=== PATIENT | female | born 1945 | race Caucasian/White ===

== ENCOUNTER 2021-05-21 08:11 | Outpatient (REF) | payer OTHER, SELFPAY ==
--- NOTE | ~2021-05-21 | XR_ITS ---
EXAMINATION: XR ELBOW, RIGHT CLINICAL INFORMATION: Pain in the elbow COMPARISON: 08/19/2016 TECHNIQUE: Two views of the right elbow. FINDINGS: Plate and screw fixation hardware is in place at the proximal ulna. Hardware is intact. Alignment at the elbow is maintained. No fracture or dislocation. Joint space is maintained. There is a 2.1 x 1 cm ossified body along the dorsal aspect of the elbow, likely within the joint. There is soft tissue swelling overlying the olecranon. XR/XR elbow RT 2V IMPRESSION: Prominent soft tissue swelling overlies the olecranon. This could represent bursitis. Ossified body at the dorsal aspect of the elbow, likely along the posterior joint.
== END 2021-05-21 08:12 | disposition home or self-care (01) ==
LOC: HO.HOSX 08:11
PROVIDERS: Visit Provider Orthopaedic Surgery
DX: M25.521 Pain in right elbow (principal); T84.498A Other mechanical complication of other internal orthopedic devices, implants and grafts, initial encounter
CPT/HCPCS: 73070

== ENCOUNTER → 2021-05-27 09:23 | Day surgery (SDC) | payer MEDICARE, MEDICAID, SELFPAY ==
--- NOTE | 2021-05-26 08:31 | P.CONAN_ITS ---
Documented by User: Willa Painting 05/26/21 08:33 HPI - Anesthesia Eval Consult details Narrative: 75yo F for Right Removal Orthopedic Hardware olecranon s/p ORIF RT OLECRANON POST OP DOS: 07/06/16 [facility] Past Medical History Medical History HTN (hypertension) Surgical History Surgical History History of elbow surgery History of tonsillectomy Social History Social History Patient Tobacco Use Status: Former Tobacco user Tobacco use type: Cigarette Use of substances other than those prescribed or required for medical reasons: No Are you DNR?: No Advance Directives: No Advance Directives Information Provided: Yes Current occupational status: retired Meds Allergies Allergy/AdvReac Type Severity Reaction Status Date / Time No Known Allergies Allergy Verified 05/27/21 09:55 [No Known Allergies*] Home Medications Medication Instructions Recorded Confirmed Last Taken Type valsartan PO 05/21/21 Unknown History Exam Exam Date and Time: May 26, 2021 0831 Assessment and Plan Assessment Anesthesia Assessment: Chart Reviewed Documented by User: Danielle Smiley 05/27/21 10:39 [facility] Past Medical History Medical History HTN (hypertension) Surgical History Surgical History History of elbow surgery History of tonsillectomy Social History Social History Patient Tobacco Use Status: Former Tobacco user Tobacco use type: Cigarette Use of substances other than those prescribed or required for medical reasons: No Are you DNR?: No Advance Directives: No Advance Directives Information Provided: Yes Current occupational status: retired Meds Allergies Allergy/AdvReac Type Severity Reaction Status Date / Time No Known Allergies Allergy Verified 05/27/21 09:55 [No Known Allergies*] Home Medications Medication Instructions Recorded Confirmed Last Taken Type valsartan PO 05/21/21 Unknown History Exam Airway Mallampati Class: II TM Dist: >3cm Neck ROM: Limited Assessment and Plan Final Anesthetic Review NPO: Yes ASA Class: II Patient Risk: Low Procedure Risk: Low Assessment/Block/Sedation in SS: Assess/Block/Sedation-SS Anesthetic Plan Anesthetic Plan: GA Disposition: Standard PACU
[2021-05-27] VITALS (7 sets, daily range): BP systolic 102–156; BP diastolic 38–71; PULSE 84–110; RESP 16–20; TEMP 36.1–36.6; O2SAT 91–95; BMI 25.7
--- NOTE | ~2021-05-27 | FL_ITS ---
EXAMINATION: XR FLUOROSCOPY WITH IMAGES CLINICAL INFORMATION: Removal of hardware right elbow. COMPARISON: Right elbow 05/21/2021 TECHNIQUE: Fluoroscopy performed by Dr. Dontae Anne. Fluoroscopy time: Less than 1 minute. DAP: [id number] [id number] Images: 1. FINDINGS: Previously visualized lateral plate and screws have been removed. The joint space is maintained normal. FL/FL guidance in OR IMPRESSION: Fluoroscopy provided to Dr. Dontae Anne for removal of proximal ulnar plate and screws.
[2021-05-27] MEDS: Lactated Ringers 1,000 ML 100 ML IVCONT (10:28)
--- NOTE | 2021-05-27 10:53 | HO.ANESPROP2 ---
[facility] Past Medical History Medical History HTN (hypertension) Family History Family history of problems with anesthesia: No Surgical History Surgical History History of elbow surgery History of tonsillectomy History of Problems with Anesthesia: No Social History Social History Patient Tobacco Use Status: Former Tobacco user Tobacco use type: Cigarette Use of substances other than those prescribed or required for medical reasons: No Are you DNR?: No Advance Directives: No Advance Directives Information Provided: Yes Current occupational status: retired Meds Allergies Allergy/AdvReac Type Severity Reaction Status Date / Time No Known Allergies Allergy Verified 05/27/21 09:55 [No Known Allergies*] Active Medications: Current Medications Generic Name Dose Route Start Last Admin Trade Name Freq PRN Reason Stop Dose Admin Lactated Ringer's 1,000 mls @ 100 mls/hr 05/27/21 09:30 05/27/21 10:28 Lr IVCONT 100 mls/hr .Q10H LAUREN Administration Home Medications Medication Instructions Recorded Confirmed Last Taken Type valsartan PO 05/21/21 Unknown History Exam Exam Date and Time: May 27, 2021 1053 Height,Weight and Vital Signs: Height 5 ft 4 in Weight 68.039 kg Last Vital Signs Temp 97.8 F 05/27/21 10:17 Pulse 110 H 05/27/21 10:17 Resp 20 05/27/21 10:17 BP 156/71 H 05/27/21 10:17 Pulse Ox 95 05/27/21 10:17 Airway Mallampati Class: II TM Dist: >3cm Neck ROM: Full Assessment and Plan Final Anesthetic Review Family History of Problems with Anesthesia: No History of Problems with Anesthesia: No NPO: Yes ASA Class: II Final Preanesthetic Review: No Changes in Pt Med Stat, Meds/Allgs Chart Reviewed, Consent Obtained/Reviewed and Anes Risks/Benef Reviewed Patient Risk: Low Procedure Risk: Low Assessment/Block/Sedation in SS: Assess/Block/Sedation-SS Anesthetic Plan Anesthetic Plan: GA Disposition: Standard PACU
--- NOTE | 2021-05-27 11:13 | MHC.SHP ---
Pre-Procedural Eval Section A Date of Service: 05/27/21 The patient is an INPATIENT: No Changes since office visit: Yes Patient answered all questions; No Cold of Flu in the past 2 weeks, No New Medical Problems and No Changes in Medication The History & Physical has been completed within 30 days and I have reviewed it.: Yes Section B Chief Complaint: mechanical complication Allergies: Allergies Allergy/AdvReac Type Severity Reaction Status Date / Time No Known Allergies Allergy Verified 05/27/21 09:55 [No Known Allergies*] Plan I have reviewed the history and physical and performed a pertinent physical examination on my patient. No changes have occurred unless specified.
[2021-05-27] MEDS: fentaNYL citrate/PF 100 MCG/2 ML VIAL 50 MCG IVPUSH (12:50)
[2021-05-27] MEDS: Ketorolac Tromethamine 15 MG/ML VIAL IVPUSH (12:55)
--- NOTE | 2021-05-27 14:42 | PM.OP ---
Brief Operative Note Date of Service: 05/27/21 Pre-op diagnosis: retained orthopaedic hardware and open wound Post-op diagnosis: same Procedure: removal of hardware and irrigation and debridement with dealyed primary closure Surgeon: Omid Diggs MD Was an Tool Rental Technician used for this Procedure?: Yes Tool Rental Technician: Briana Barnett Estimated blood loss (mL): 25 Pathology: none sent Condition: stable Disposition: PACU
--- NOTE | 2021-06-04 14:59 | P.OP_ITS ---
Operative Note Operative Note Date of Service: 05/27/21 Narrative: Pre-op diagnosis: retained orthopaedic hardware and open wound Post-op diagnosis: same Procedure: removal of hardware and irrigation and debridement with dealyed primary closure Surgeon: Omid Diggs MD Was an Print Support Specialist used for this Procedure?: Yes Print Support Specialist: Briana Barnett Estimated blood loss (mL): 25 Pathology: none sent Condition: stable Disposition: PACU Procedure in detail: Patient was brought to the operating room placed supine on the hand table and prepped and draped in standard sterile fashion. Time-out was called after proper site proper procedure proper surgeon and IV antibiotics per weight were administered. I began by opening up the open area over the olecranon. This was exposed to the hardware and there was florid septic bursal tissue. This was removed with a combination of a run sugar and cautery and the prior incision was opened up. The hardware was then removed using screwdriver without complication. Once this was done I curetted the bone and the soft tissues of about the olecranon and irrigated with approximately 4 L of warm saline. Once I was satisfied that all the necrotic tissue was removed I performed a layered closure with amelia on the skin. Patient was placed in sterile dressing. Final radiographs were used to confirm that the hardware was removed. Patient was extubated brought to recovery room there were no known complications.
== END | disposition home or self-care (01) ==
PROVIDERS: Visit Provider Orthopaedic Surgery
PROC: (CPT 20680; principal; 2021-05-27 11:00)
DX: T84.498A Other mechanical complication of other internal orthopedic devices, implants and grafts, initial encounter (principal); S51.001A Unspecified open wound of right elbow, initial encounter; M71.121 Other infective bursitis, right elbow; X58.XXXA Exposure to other specified factors, initial encounter; Y79.8 Miscellaneous orthopedic devices associated with adverse incidents, not elsewhere classified; Y99.8 Other external cause status; I10 Essential (primary) hypertension; Z79.899 Other long term (current) drug therapy; Z87.891 Personal history of nicotine dependence
CPT/HCPCS: 20680; J0131; J0690; J1100; J1885; J2405; J3010

== ENCOUNTER → 2021-06-08 12:33 | Outpatient (BNVA) | payer MEDICARE, MEDICAID, SELFPAY | PROVIDERS: Visit Provider Physician Assistant | DX: Z47.89 Encounter for other orthopedic aftercare (principal); Z98.890 Other specified postprocedural states | CPT/HCPCS: 99212 ==

== ENCOUNTER → 2021-06-12 10:26 | Outpatient (BNVA) | payer MEDICARE, MEDICAID, SELFPAY | PROVIDERS: Visit Provider Physician Assistant | DX: Z98.890 Other specified postprocedural states (principal) | CPT/HCPCS: 99212 ==

== ENCOUNTER → 2021-06-29 09:06 | Outpatient (BNVA) | payer MEDICARE, MEDICAID, SELFPAY | PROVIDERS: Visit Provider Physician Assistant | DX: Z98.890 Other specified postprocedural states (principal) | CPT/HCPCS: 99212 ==

== ENCOUNTER 2022-05-09 10:08 | Inpatient (IN) | payer MEDICARE, MEDICAID, SELFPAY ==
--- NOTE | ~2022-05-09 | XR_ITS ---
EXAMINATION: XR HIP, LEFT CLINICAL INFORMATION: Trauma COMPARISON: None TECHNIQUE: Pelvis, AP view Left hip, 2 views FINDINGS: The osseous pelvic ring is intact. Alignment is normal the pubic symphysis and sacroiliac joints. Mild degenerative subarticular sclerosis at sacroiliac joints. No radiographic evidence of sacral fracture. The joint space of each hip is maintained. There is an acute, comminuted, moderately displaced intertrochanteric fracture of the left femur with posterosuperolateral migration of the shaft fragment and femoral varus deformity. The iliac and femoral arteries are calcified. XR/XR hip LT w PEL1V IMPRESSION: Acute, comminuted, moderately displaced intertrochanteric fracture of the proximal left femur.
--- NOTE | ~2022-05-09 | FL_ITS ---
EXAMINATION: XR FLUOROSCOPY WITH IMAGES CLINICAL INFORMATION: Left hip fracture. COMPARISON: Previous x-ray 05/09/2022. TECHNIQUE: Fluoroscopy performed by Dr. Omid Diggs. Fluoroscopy time: 1.2 minutes Dose: 36 mGy Images: 6 FINDINGS: Fluoroscopic guidance was provided for ORIF of left femoral intertrochanteric fracture. Images demonstrate an intramedullary eligio, compression/lag screw and single distal cortical screw with improved anatomic alignment. FL/FL guidance in OR IMPRESSION: Fluoroscopic guidance for ORIF of left femoral intertrochanteric fracture.
--- NOTE | ~2022-05-09 | XR_ITS ---
EXAMINATION: XR CHEST CLINICAL INFORMATION: Cough. COMPARISON: None TECHNIQUE: Frontal view of the chest was obtained. FINDINGS: Lungs are well expanded and clear. No pleural effusion. Cardiac silhouette is normal in size. The hilar contours are normal. The structure that causes right-sided deviation of the trachea is likely a nodular thyroid gland/goiter. Multilevel osteophyte formation of the spine. XR/XR chest 1V IMPRESSION: * No acute pulmonary disease. * There is likely a large left thyroid nodule/thyroid goiter. Note that there are no comparison imaging examinations of the thyroid gland. If deemed clinically appropriate, a routine (nonemergent) thyroid ultrasound follow-up examination may be performed.
[2022-05-09 10:17] VITALS: BP 177/57; BP 181/56; PULSE 108; PULSE 110; RESP 18; TEMP 36.7; O2SAT 95; O2SAT 96; BMI 25.7
[2022-05-09 10:24] LABS: Glucose, Whole Blood 452 mg/dL (60-115)
--- NOTE | 2022-05-09 10:26 | ECG_ITS ---
Test Reason : fall Blood Pressure : / mmHG Vent. Rate : 102 BPM Atrial Rate : 102 BPM P-R Int : 164 ms QRS Dur : 088 ms QT Int : 346 ms P-R-T Axes : 032 082 043 degrees QTc Int : 450 ms Sinus tachycardia with Premature supraventricular complexes Otherwise normal ECG No previous ECGs available Referred By: Jair Grey Electronically Signed By:Brian Saldivar
--- NOTE | 2022-05-09 10:27 | ED.FALL ---
HPI - Fall General Chief Complaint: Fall Stated Complaint: Mechanical fall X1day Time Seen by Provider: 05/09/22 10:23 Source: patient and EMS Mode of arrival: EMS Limitations: no limitations History of Present Illness HPI Narrative: This is 76 years old female who fell last night while opening the refrigerator called the ambulance with a chief complaint of left hip pain inability to ambulate. She denies any chest wall pain, abdominal pain, any systemic symptoms. She states she has no past medical history complaint: fall Onset (ago): day(s) (1) Fall from: standing Fall witnessed: no Place fall occurred: home Loss of consciousness: none Prolonged down time: no Symptoms prior to fall: none Context: tripped/slipped Related Data Home Medications Medication Instructions Recorded Confirmed No Known Home Meds 05/09/22 05/09/22 Allergies Allergy/AdvReac Type Severity Reaction Status Date / Time No Known Allergies Allergy Verified 06/29/21 09:10 [No Known Allergies*] Review of Systems Constitutional: Constitutional: Reports no additional constitutional complaints Eyes: Eyes: Reports no additional eye complaints ENT: Reports system reviewed and no additional complaints, except as documented Cardiovascular: Cardiovascular: Reports no additional cardiovascular complaints Genitourinary: Genitourinary: Reports no additional female genitourinary complaints Musculoskeletal: Musculoskeletal: Reports other (left hip pain ) [facility] Past Medical History Medical History HTN (hypertension) Surgical History History of elbow surgery History of tonsillectomy Family History Family History (Updated 05/09/22 @ 12:42 by Tai Craven MD) Other No family history of diabetes mellitus Social History Social History (Updated 05/09/22 @ 12:42 by Tai Craven MD) Alcohol intake: current Alcohol intake frequency: 0-2 drinks per day Alcohol type: hard liquor Patient Tobacco Use Status: Former Tobacco user Tobacco use type: Cigarette Use of substances other than those prescribed or required for medical reasons: No Advance Directives: No Advance Directives Information Provided: No Current occupational status: retired Physical Exam Vital Signs: Vital Signs: Last Vital Signs Temp 98.2 F 05/09/22 10:42 Pulse 102 H 05/09/22 10:42 Resp 19 05/09/22 10:42 BP 161/62 H 05/09/22 10:42 Pulse Ox 96 05/09/22 10:42 O2 Del Method 05/09/22 10:42 BMI result Body Mass Index 25.7 Const: General: cooperative Nutritional Appearance: average body habitus Orientation/consciousness: patient oriented x3 Limitations: no limitations HEENT: Head: Yes normal to inspection General nose exam: Normal external nose present Face and sinus: Yes normal facial exam Throat: Yes posterior oropharynx normal Neck: Neck: Yes normal visual inspection, Yes full ROM and Yes no lymphadenopathy Chest: Chest palpation & inspection: normal inspection of the chest Resp: Effort & Inspection: normal respiratory effort Auscultation: clear to auscultation bilaterally Cardio: Jugular venous distension: no JVD Rate: regular rate Rhythm: regular rhythm GI: Inspection: Yes normal to inspection Palpation (GI): Soft to palpation, not firm, nontender and no guarding Skin: General skin exam: no rashes or lesions noted Neuro: General: patient oriented x3 Extrem: Other: There is a extra rotation of the left hip, tenderness in the left hip, shortening on the left lower extremity Course Course Course Narrative: I spoke with cl Damon pt to be admitted to the medical service Reevaluation(s) Reevaluation #1: spoke with hospitalist Dr Herber Corrales Lab Data Result diagrams: 05/09/22 10:35 05/09/22 10:35 Labs: Lab Results 05/09/22 05/09/22 05/09/22 Range/Units 10:20 10:35 10:35 WBC 12.4 H (4.8-10.8) X10*3/uL RBC 4.14 L (4.20-5.50) X10*6/uL Hgb 12.2 (12.0-16.0) g/dl Hct 35.2 L (37.0-47.0) % MCV 85.0 (80.0-98.0) fL MCH 29.5 (27.0-33.0) pg MCHC 34.7 (31.0-35.0) g/dl RDW 12.3 (11.0-16.0) % Plt Count 295 (160-400) X10*3/uL MPV 9.6 (9.4-12.3) fL Immature Gran % (Auto) 0.8 H (0.0-0.4) % Neut % (Auto) 83.6 H (45-73) % Lymph % (Auto) 7.3 L (20-40) % Elliott % (Auto) 8.0 (2-11) % Eos % (Auto) 0.1 (0-4) % Baso % (Auto) 0.2 (0-2) % Lymph # (Auto) 0.9 L (1.2-4.9) X10*3/uL Elliott # (Auto) 1.0 (0.1-1.2) X10*3/uL Eos # (Auto) 0.0 (0.0-0.4) X10*3/uL Baso # (Auto) 0.0 (0.0-0.2) X10*3/uL Abs Immat Gran (auto) 0.10 H (0.00-0.03) X10*3/uL Absolute Neuts (auto) 10.4 H (2.0-8.3) x10*3/uL Absolute Nucleated RBC 0.000 (0.0-0.012) X10*3/uL Nucleated RBC % (auto) 0.0 (0.0-0.2) /100WBC PT (10.0-13.1) SEC INR (0.9-1.1) Sodium 133 L (135-145) mmol/L Potassium 4.8 (3.3-5.1) mmol/L Chloride 99 (96-108) mmol/L Carbon Dioxide 24 (22-29) mmol/L Anion Gap 15 (12-20) BUN 20 H (9-16) mg/dL Creatinine 0.97 (0.5-1.4) mg/dL Estim Creat Clear Calc 47.4 Estimated GFR 56 POC Glucose 452 H* (60-115) mg/dL Random Glucose 535 H* (60-115) mg/dL Estimat Average Glucose mg/dL Hemoglobin A1c % % Calcium 9.0 (8.4-10.2) mg/dL Total Bilirubin 0.9 (0.0-1.0) mg/dL AST 15 (5-31) U/L ALT 15 (0-31) U/L Alkaline Phosphatase 97 (39-117) U/L Total Protein 6.4 L (6.5-8.0) g/dL Albumin 4.1 (3.5-5.0) g/dL Urine Color Urine Appearance Urine pH (5.0-8.0) Ur Specific [place] (1.005-1.025) Urine Protein (NEG-TRACE) MG/DL Urine Glucose (UA) (NEG) MG/DL Urine Ketones (NEG) MG/DL Urine Blood (NEG) Urine Nitrite (NEG) Ur Leukocyte Esterase (NEG) Urine RBC (0) /HPF Urine WBC (0-4) /HPF Ur Squamous Epith Cells /LPF Urine Bacteria /LPF Urine Yeast /HPF 05/09/22 05/09/22 05/09/22 Range/Units 10:35 10:35 12:38 WBC (4.8-10.8) X10*3/uL RBC (4.20-5.50) X10*6/uL Hgb (12.0-16.0) g/dl Hct (37.0-47.0) % MCV (80.0-98.0) fL MCH (27.0-33.0) pg MCHC (31.0-35.0) g/dl RDW (11.0-16.0) % Plt Count (160-400) X10*3/uL MPV (9.4-12.3) fL Immature Gran % (Auto) (0.0-0.4) % Neut % (Auto) (45-73) % Lymph % (Auto) (20-40) % Elliott % (Auto) (2-11) % Eos % (Auto) (0-4) % Baso % (Auto) (0-2) % Lymph # (Auto) (1.2-4.9) X10*3/uL Elliott # (Auto) (0.1-1.2) X10*3/uL Eos # (Auto) (0.0-0.4) X10*3/uL Baso # (Auto) (0.0-0.2) X10*3/uL Abs Immat Gran (auto) (0.00-0.03) X10*3/uL Absolute Neuts (auto) (2.0-8.3) x10*3/uL Absolute Nucleated RBC (0.0-0.012) X10*3/uL Nucleated RBC % (auto) (0.0-0.2) /100WBC PT 10.6 (10.0-13.1) SEC INR 0.9 (0.9-1.1) Sodium (135-145) mmol/L Potassium (3.3-5.1) mmol/L Chloride (96-108) mmol/L Carbon Dioxide (22-29) mmol/L Anion Gap (12-20) BUN (9-16) mg/dL Creatinine (0.5-1.4) mg/dL Estim Creat Clear Calc Estimated GFR POC Glucose (60-115) mg/dL Random Glucose (60-115) mg/dL Estimat Average Glucose 283 mg/dL Hemoglobin A1c % 11.5 % Calcium (8.4-10.2) mg/dL Total Bilirubin (0.0-1.0) mg/dL AST (5-31) U/L ALT (0-31) U/L Alkaline Phosphatase (39-117) U/L Total Protein (6.5-8.0) g/dL Albumin (3.5-5.0) g/dL Urine Color YELLOW Urine Appearance HAZY Urine pH 5.5 (5.0-8.0) Ur Specific [place] 1.010 (1.005-1.025) Urine Protein NEG (NEG-TRACE) MG/DL Urine Glucose (UA) >=1000 H (NEG) MG/DL Urine Ketones 5 (NEG) MG/DL Urine Blood NEG (NEG) Urine Nitrite NEG (NEG) Ur Leukocyte Esterase NEG (NEG) Urine RBC 0 (0) /HPF Urine WBC 0-2 (0-4) /HPF Ur Squamous Epith Cells TRACE /LPF Urine Bacteria NONE /LPF Urine Yeast 3+ /HPF Imaging Data left hip: Radiologist's impression: TECHNIQUE: Pelvis, AP view Left hip, 2 views FINDINGS: The osseous pelvic ring is intact. Alignment is normal the pubic symphysis and sacroiliac joints. Mild degenerative subarticular sclerosis at sacroiliac joints. No radiographic evidence of sacral fracture. The joint space of each hip is maintained. There is an acute, comminuted, moderately displaced intertrochanteric fracture of the left femur with posterosuperolateral migration of the shaft fragment and femoral varus deformity. The iliac and femoral arteries are calcified. XR/XR hip LT w PEL1V IMPRESSION: Acute, comminuted, moderately displaced intertrochanteric fracture of the proximal left femur. ? Dictated By: Elkin Valera MD Signed By: <Electronically signed by Elkin Valera MD in OV> 05/09/22 1255 DD/ 1150 TD/TT:? Cylinder Devalver: PD ECG Data Attestation: I personally reviewed and interpreted this ECG as follows: ECG interpretation date: 05/09/22 Pacemaker model: Normal sinus rhythm a rate of 102 no ischemic changes Discharge Plan Discharge Clinical Impression: Closed hip fracture, Diabetes mellitus, new onset Patient Disposition: Admitted As Inpatient
[2022-05-09 10:39] LABS: MANUAL DIFF FLAG NO
[2022-05-09 10:42] VITALS: BP 161/62; PULSE 102; RESP 19; TEMP 36.8; O2SAT 96
[2022-05-09 10:47] LABS: INTERNATIONAL NORM RATIO 0.9 (0.9-1.1); Prothrombin Time 10.6 SEC (10.0-13.1)
[2022-05-09 10:50] LABS: Basophils Percent Auto 0.2 % (0-2); Eosinophils Percent Auto 0.1 % (0-4); Hematocrit 35.2 % (37.0-47.0); Hemoglobin 12.2 g/dl (12.0-16.0); Imm Gran Pct Auto 0.8 % (0.0-0.4); Lymphocytes Absolute Auto 0.9 X10*3/uL (1.2-4.9); Lymphocytes Percent Auto 7.3 % (20-40); Mean Corpuscular HGB Conc 34.7 g/dl (31.0-35.0); Mean Corpuscular Hemoglobin 29.5 pg (27.0-33.0); Mean Platelet Volume 9.6 fL (9.4-12.3); Neutrophils Absolute Auto 10.4 x10*3/uL (2.0-8.3); Neutrophils Percent Auto 83.6 % (45-73); Platelet Count 295 X10*3/uL (160-400); Red Blood Count 4.14 X10*6/uL (4.20-5.50); Red Cell Distribution Width 12.3 % (11.0-16.0); White Blood Count 12.4 X10*3/uL (4.8-10.8)
--- NOTE | 2022-05-09 11:01 | PHA.MEDREC ---
Pharmacy Consult ? Medication Reconciliation Pharmacy has completed the medication reconciliation.
[2022-05-09 11:02] LABS: Alanine Aminotransferase 15 U/L (0-31); Albumin Level 4.1 g/dL (3.5-5.0); Alkaline Phosphatase 97 U/L (39-117); Anion Gap 15 (12-20); Aspartate Amino Transferase 15 U/L (5-31); Bilirubin Total 0.9 mg/dL (0.0-1.0); Blood Urea Nitrogen 20 mg/dL (9-16); Carbon Dioxide 24 mmol/L (22-29); Chloride 99 mmol/L (96-108); Creatinine Clr Calc Pharmacy 47.4; Estimated Glomerular Filt Rate 56; Glucose Random 535 mg/dL (60-115); Potassium 4.8 mmol/L (3.3-5.1); Sodium 133 mmol/L (135-145); Total Protein 6.4 g/dL (6.5-8.0)
[2022-05-09] MEDS: ondansetron HCL 4 MG/2 ML VIAL IVPUSH (11:08)
[2022-05-09] MEDS: Morphine Sulfate 4 MG/ML CARTRIDGE IVPUSH (11:08)
[2022-05-09] MEDS: 0.9 % Sodium Chloride 1,000 ML 999 ML IVCONT ×2 (11:08)
[2022-05-09] MEDS: Insulin Lispro 100 UNIT/ML 3 ML VIAL SUBCUT ×3 (11:09→21:34)
[2022-05-09 12:27] LABS: Estimated Average Glucose 283 mg/dL; Hemoglobin A1c % 11.5 %
--- NOTE | 2022-05-09 12:42 | P.HPHOSP_ITS ---
History of Present Illness Date of Service: 05/09/22 Chief Complaint: fall 76F presented with mechanical fall. patient had been feeling well on day of presentation. She was reaching for something in her refrigerator and slipped and fell on her left side. She had significant pain was unable to get up. She called EMS. In ED found to have left hip fracture. Also incidentally found to have hyperglycemia, A1c of 11.5, consistent with new onset diabetes, patient was unaware of diagnosis. She denied any previous past medical history and was not on any medications at home. Review of Systems Review of Systems: Constitutional: Denies fever, denies Chills Eyes: denies blurry vision ENT: denies sore throat CVS: denies chest pain Respiratory: Denies dyspnea GI: no abdominal pain : denies dysuria MSK: denies neck pain Skin: denies rash Neuro: denies specific motor weakness Psych: denies suicidal ideation Endocrine: denies heat/cold intolerance Hematologic: denies easy bleeding Allergy: denies hives [facility] Medical History HTN (hypertension) Family History (Updated 05/09/22 @ 12:42 by Tai Craven MD) Other No family history of diabetes mellitus Surgical History History of elbow surgery History of tonsillectomy Social History (Updated 05/09/22 @ 12:42 by Tai Craven MD) Alcohol intake: current Alcohol intake frequency: 0-2 drinks per day Alcohol type: hard liquor Patient Tobacco Use Status: Former Tobacco user Tobacco use type: Cigarette Use of substances other than those prescribed or required for medical reasons: No Advance Directives: No Advance Directives Information Provided: No Current occupational status: retired Meds Allergies Allergy/AdvReac Type Severity Reaction Status Date / Time No Known Allergies Allergy Verified 06/29/21 09:10 [No Known Allergies*] Active Medications: Current Medications Acetaminophen (Acetaminophen 325 Mg Tablet) 650 mg PO Q6H PRN PRN Reason: Pain, Mild (Pain Scale 1-3) Dextrose (Dextrose 50 % 25 Gm/50 Ml Syringe) 25 gm IVPUSH Q15M PRN; Protocol PRN Reason: per Hypoglycemia Standing Ord. Glucose (Glucose Gel 15 Gm Gel..Gram.) 15 gm PO Q15M PRN; Protocol PRN Reason: per Hypoglycemia Standing Ord. Sodium Chloride (Ns) 1,000 mls @ 100 mls/hr IVCONT .Q10H [facility] Insulin Human Lispro (Insulin Lispro 100 Unit/Ml 3 Ml Vial) 0 unit SUBCUT QIDACHS [facility]; Protocol Pharmacy Consult (Consult Rx Perform Med Rec) 1 each MISCELLANE ONCE PRN PRN Reason: Consult order Sodium Chloride (0.9 % Sodium Chloride Flush 3 Ml Syringe) 3 ml IVFLUSH QSHIFT [facility] Home Medications Medication Instructions Recorded Confirmed Last Taken Type No Known Home Meds 05/09/22 05/09/22 Unknown History Physical Exam Vital Signs and Narrative: Vital Signs: Last Vital Signs Temp 98.2 F 05/09/22 10:42 Pulse 102 H 05/09/22 10:42 Resp 19 05/09/22 10:42 BP 161/62 H 05/09/22 10:42 Pulse Ox 96 05/09/22 10:42 O2 Del Method 05/09/22 10:42 BMI result Body Mass Index 25.7 General: no acute distress HEENT: atraumatic Neck: normal to visual inspection CVS: S1, S2, RRR Resp: CTA bilateral Chest: non tender GI: soft, non tender, non distended : no CVA tenderness Skin: no rashes Extremities: no edema Neuro: Oriented X3, grossly intact Psych: cooperative Results Labs CBC and Chem 7: 05/09/22 10:35 05/09/22 10:35 Labs: Laboratory Results - last 24 hr 05/09/22 05/09/22 05/09/22 10:20 10:35 10:35 MCV 85.0 MCH 29.5 MCHC 34.7 RDW 12.3 Plt Count 295 MPV 9.6 Immature Gran % (Auto) 0.8 H Neut % (Auto) 83.6 H Lymph % (Auto) 7.3 L Sanders % (Auto) 8.0 Eos % (Auto) 0.1 Baso % (Auto) 0.2 Lymph # (Auto) 0.9 L Sanders # (Auto) 1.0 Eos # (Auto) 0.0 Baso # (Auto) 0.0 Abs Immat Gran (auto) 0.10 H Absolute Neuts (auto) 10.4 H Absolute Nucleated RBC 0.000 Nucleated RBC % (auto) 0.0 PT INR Anion Gap 15 Estim Creat Clear Calc 47.4 Estimated GFR 56 POC Glucose 452 H* Random Glucose 535 H* Estimat Average Glucose Hemoglobin A1c % Calcium 9.0 Total Bilirubin 0.9 AST 15 ALT 15 Alkaline Phosphatase 97 Total Protein 6.4 L Albumin 4.1 05/09/22 05/09/22 10:35 10:35 MCV MCH MCHC RDW Plt Count MPV Immature Gran % (Auto) Neut % (Auto) Lymph % (Auto) Sanders % (Auto) Eos % (Auto) Baso % (Auto) Lymph # (Auto) Sanders # (Auto) Eos # (Auto) Baso # (Auto) Abs Immat Gran (auto) Absolute Neuts (auto) Absolute Nucleated RBC Nucleated RBC % (auto) PT 10.6 INR 0.9 Anion Gap Estim Creat Clear Calc Estimated GFR POC Glucose Random Glucose Estimat Average Glucose 283 Hemoglobin A1c % 11.5 Calcium Total Bilirubin AST ALT Alkaline Phosphatase Total Protein Albumin Assessment and Plan (1) Closed hip fracture: Status: Acute Plan 76F presented with mechanical fall, found to have left hip fracture and new onset DM Mechanical fall complicated by left hip fracture NPO after midnight for OR tomorrow patient is moderate risk for moderate risk procedure, Benefits outweigh risk new onset diabetes with hyperglycemia and pseudohyponatremia insulin, IV hydration, monitor BMP, patient Education, at discharge can likely use orals, will use insulin while inpatient. full code patient with hip fracture requiring surgery, therefore, expected to require at least 2 midnights in the hospital Quality Stroke Does the patient have a stroke diagnosis?: No VTE Prior VTE?: No VTE Risk Level:: Medical - moderate - high VTE Device Contraindication: N/A - Device Ordered VTE Drug Contraindication: Treatment Not Tolerated
[2022-05-09 12:53] LABS: Appearance Urine HAZY; Color Urine YELLOW; Glucose Urine UA >=1000 MG/DL (NEG); Leukocyte Esterase Urine NEG (NEG); Nitrite Urine NEG (NEG); PH 5.5 (5.0-8.0); Urine Blood NEG (NEG); Urine Ketones 5 MG/DL (NEG); Urine Protein NEG (NEG-TRACE)
[2022-05-09 12:59] LABS: RBC Urine 0 /HPF (0); Squamous Epithelial Cell Urine TRACE /LPF; WBC Urine 0-2 /HPF (0-4)
[2022-05-09 13:02] LABS: COVID-19 Test Negative (Negative)
[2022-05-09 13:31] VITALS: BP 148/58; PULSE 93; RESP 16; O2SAT 98
[2022-05-09] MEDS: 0.9 % Sodium Chloride 1,000 ML 100 ML IVCONT (13:35)
[2022-05-09 13:53] LABS: Glucose, Whole Blood 272 mg/dL (60-115)
[2022-05-09] MEDS: Morphine Sulfate 2 MG/ML CARTRIDGE IVPUSH ×2 (15:21→21:35)
--- NOTE | 2022-05-09 18:02 | P.CONOP_ITS ---
History of Present Illness HPI Consult date: 05/09/22 Chief complaint: Mechanical fall X1day Narrative: 76 yo female admited to the medical service s/p fall at home. She states she was getting some soda from the fridge when she suddenly fell . She denies sob, dizziness, palpitations prior to falling. She did not hit her head. She states she was able to crawl to call her son who lives with her. She applied ice and heat but noticed her leg was rotated and she was unable to get up and walker. EMS was contacted and transported her to the ED. Xrays and exam in the ED showed intertrochanteric fracture of the left femur. Orthopedics was consulted for further recommendations. She is a new onset diabetic with an A1C of 11.5 She lives at home with her son. Review of Systems Review of Systems: per [facility] Past Medical History Medical History HTN (hypertension) Family History Family History (Updated 05/09/22 @ 12:42 by Tai Craven MD) Other No family history of diabetes mellitus Surgical History Surgical History History of elbow surgery History of tonsillectomy Social History Social History (Updated 05/09/22 @ 12:42 by Tai Craven MD) Alcohol intake: current Alcohol intake frequency: 0-2 drinks per day Alcohol type: hard liquor Patient Tobacco Use Status: Former Tobacco user Tobacco use type: Cigarette Use of substances other than those prescribed or required for medical reasons: No Advance Directives: No Advance Directives Information Provided: No Current occupational status: retired Meds Allergies Allergy/AdvReac Type Severity Reaction Status Date / Time No Known Allergies Allergy Verified 06/29/21 09:10 [No Known Allergies*] Active Medications: Current Medications Acetaminophen (Acetaminophen 325 Mg Tablet) 650 mg PO Q6H PRN PRN Reason: Pain, Mild (Pain Scale 1-3) Dextrose (Dextrose 50 % 25 Gm/50 Ml Syringe) 25 gm IVPUSH Q15M PRN; Protocol PRN Reason: per Hypoglycemia Standing Ord. Glucose (Glucose Gel 15 Gm Gel..Gram.) 15 gm PO Q15M PRN; Protocol PRN Reason: per Hypoglycemia Standing Ord. Sodium Chloride (Ns) 1,000 mls @ 100 mls/hr IVCONT .Q10H [facility] Last Admin: 05/09/22 13:35 Dose: 100 mls/hr Insulin Human Lispro (Insulin Lispro 100 Unit/Ml 3 Ml Vial) 0 unit SUBCUT QIDACHS [facility]; Protocol Morphine Sulfate (Morphine Sulfate 2 Mg/Ml Cartridge) 2 mg IVPUSH Q4H PRN; Protocol PRN Reason: moderate pain Last Admin: 05/09/22 15:21 Dose: 2 mg Pharmacy Consult (Consult Rx Perform Med Rec) 1 each MISCELLANE ONCE PRN PRN Reason: Consult order Sodium Chloride (0.9 % Sodium Chloride Flush 3 Ml Syringe) 3 ml IVFLUSH QSHIFT [facility] Last Admin: 05/09/22 16:14 Dose: Not Given Home Medications Medication Instructions Recorded Confirmed Last Taken Type No Known Home Meds 05/09/22 05/09/22 Unknown History Physical Exam Vital Signs: Vital Signs: Last Vital Signs Temp 98.2 F 05/09/22 10:42 Pulse 93 05/09/22 13:31 Resp 16 05/09/22 13:31 BP 148/58 H 05/09/22 13:31 Pulse Ox 98 05/09/22 13:31 O2 Del Method 05/09/22 13:31 BMI result Body Mass Index 25.7 Const: General: cooperative, healthy appearing, comfortable, no acute distress, well developed and alert Orientation/consciousness: patient oriented x3 HEENT: Head: Yes normal to inspection, Yes normocephalic and Yes atraumatic Eyes: General: appearance normal, both eyes and all related structures Neck: Neck: Yes normal visual inspection and Yes no lymphadenopathy Resp: Effort & Inspection: normal respiratory effort and able to speak in complete sentences Cardio: Rate: regular rate Peripheral pulses: Peripheral pulses 2+ throughout GI: Inspection: Yes normal to inspection Palpation (GI): Soft to palpation Skin: General skin exam: no rashes or lesions noted Neuro: General: patient oriented x3 Extrem: Other: Left hip skin intact, no open wounds. Pain with log roll, unable to SLR. NVI. Psych: Appearance: grossly normal Mental Status: mental status grossly normal Results Labs Result Diagrams: 05/10/22 06:36 05/10/22 06:36 Labs: Abnormal lab results 05/09/22 05/09/22 05/09/22 Range/Units 10:20 10:35 10:35 WBC 12.4 H (4.8-10.8) X10*3/uL RBC 4.14 L (4.20-5.50) X10*6/uL Hct 35.2 L (37.0-47.0) % Immature Gran % (Auto) 0.8 H (0.0-0.4) % Neut % (Auto) 83.6 H (45-73) % Lymph % (Auto) 7.3 L (20-40) % Lymph # (Auto) 0.9 L (1.2-4.9) X10*3/uL Abs Immat Gran (auto) 0.10 H (0.00-0.03) X10*3/uL Absolute Neuts (auto) 10.4 H (2.0-8.3) x10*3/uL Sodium 133 L (135-145) mmol/L BUN 20 H (9-16) mg/dL POC Glucose 452 H* (60-115) mg/dL Random Glucose 535 H* (60-115) mg/dL Total Protein 6.4 L (6.5-8.0) g/dL Urine Glucose (UA) (NEG) MG/DL 05/09/22 05/09/22 Range/Units 12:38 13:47 WBC (4.8-10.8) X10*3/uL RBC (4.20-5.50) X10*6/uL Hct (37.0-47.0) % Immature Gran % (Auto) (0.0-0.4) % Neut % (Auto) (45-73) % Lymph % (Auto) (20-40) % Lymph # (Auto) (1.2-4.9) X10*3/uL Abs Immat Gran (auto) (0.00-0.03) X10*3/uL Absolute Neuts (auto) (2.0-8.3) x10*3/uL Sodium (135-145) mmol/L BUN (9-16) mg/dL POC Glucose 272 H (60-115) mg/dL Random Glucose (60-115) mg/dL Total Protein (6.5-8.0) g/dL Urine Glucose (UA) >=1000 H (NEG) MG/DL H & H 05/09/22 Range/Units 10:35 Hgb 12.2 (12.0-16.0) g/dl Hct 35.2 L (37.0-47.0) % Coagulation 05/09/22 Range/Units 10:35 INR 0.9 (0.9-1.1) All other labs normal. Assessment and Plan (1) Closed hip fracture: Status: Acute Plan I explained the extent of the injury to the patient and options available which include surgical intervention. I explained the procedure in detail along with the length of recovery and rehab course. I explained the risk, benefits and alternatives. Risk including, but not limited to infection, blood clots, bleeding, non union or malunion and nerve/tissue damage to surrounding areas. I answered all their questions and with their understanding they have consented to move forward with Operative Fixation of the left hip . The patient will be T&S, med clearance obtained and NPO after midnight. Procedures Date of Service Date of Service: 05/10/22
[2022-05-09 18:21] LABS: Glucose, Whole Blood 272 mg/dL (60-115)
[2022-05-09 21:30] LABS: Glucose, Whole Blood 262 mg/dL (60-115)
[2022-05-10] VITALS (15 sets, daily range): BP systolic 143–188; BP diastolic 47–81; PULSE 90–111; RESP 16–23; TEMP 36.1–37.4; O2SAT 93–96
[2022-05-10] MEDS: 0.9 % Sodium Chloride 1,000 ML 100 ML IVCONT ×3 (00:06→19:42)
--- NOTE | 2022-05-10 04:02 | PC.NURSE ---
pt is sleeping at this time no sign of distress.
[2022-05-10 07:06] LABS: Hematocrit 30.6 % (37.0-47.0); Hemoglobin 10.2 g/dl (12.0-16.0); Mean Corpuscular HGB Conc 33.3 g/dl (31.0-35.0); Mean Corpuscular Hemoglobin 29.3 pg (27.0-33.0); Mean Corpuscular Volume 87.9 fL (80.0-98.0); Mean Platelet Volume 9.6 fL (9.4-12.3); Platelet Count 219 X10*3/uL (160-400); Red Blood Count 3.48 X10*6/uL (4.20-5.50); Red Cell Distribution Width 12.6 % (11.0-16.0); White Blood Count 8.1 X10*3/uL (4.8-10.8)
[2022-05-10 07:29] LABS: Anion Gap 12 (12-20); Blood Urea Nitrogen 12 mg/dL (9-16); Calcium 8.2 mg/dL (8.4-10.2); Carbon Dioxide 22 mmol/L (22-29); Chloride 105 mmol/L (96-108); Creatinine Clr Calc Pharmacy 69.8; Estimated Glomerular Filt Rate > 60; Glucose Fasting 264 mg/dL (60-99); Magnesium 1.6 mg/dL (1.6-2.6); Sodium 135 mmol/L (135-145)
[2022-05-10 07:52] LABS: Glucose, Whole Blood 235 mg/dL (60-115)
--- NOTE | 2022-05-10 09:28 | PC.NURSE ---
REPORT GIVEN TO MELISSA ABEL. PT WILL TRANSFER TO ROOM 352.
[2022-05-10] MEDS: Morphine Sulfate 2 MG/ML CARTRIDGE IVPUSH ×2 (09:56→14:15)
[2022-05-10 11:58] LABS: Glucose, Whole Blood 219 mg/dL (60-115)
--- NOTE | 2022-05-10 15:23 | MHC.CM.NN ---
met with pt who is unsure of dc plan she is unvaccinated and does not want to do a hcp because she says she is not goping to she would rather go home with vna or outpt physicaL therapy altho at the same time sheldon mentioned going to [facility] cm will follow dc plan tbd by pt surjit
[2022-05-10 15:47] LABS: Glucose, Whole Blood 216 mg/dL (60-115)
--- NOTE | 2022-05-10 15:49 | P.PNIM_ITS ---
Subjective Subjective Date of Service: 05/10/22 Interval History: seen and examined hip pain controlled d/w her re: diagnosis of DM -- states she eats dontus daily but understands she will have to stop Review of Systems negative except HPI Physical Exam Vital Signs: Vital Signs: Last Vital Signs Temp 97.8 F 05/10/22 15:04 Pulse 101 H 05/10/22 15:04 Resp 18 05/10/22 15:04 BP 164/81 H 05/10/22 15:04 Pulse Ox 93 05/10/22 15:04 O2 Del Method 05/10/22 15:04 BMI result Body Mass Index 25.7 Const: Other: General - no acute distress, appears comfortable Cardiovascular - regular rate and rhythm, S1-S2 Lungs - normal respiratory effort, clear to auscultation bilaterally, no wheezing Abdomen - soft, nontender, no rebound or guarding Extremities - no edema Neuro - awake and alert, no focal deficits Objective Data Active Medications Acetaminophen (Acetaminophen 325 Mg Tablet) 650 mg PO Q6H PRN PRN Reason: Pain, Mild (Pain Scale 1-3) Dextrose (Dextrose 50 % 25 Gm/50 Ml Syringe) 25 gm IVPUSH Q15M PRN; Protocol PRN Reason: per Hypoglycemia Standing Ord. Glucose (Glucose Gel 15 Gm Gel..Gram.) 15 gm PO Q15M PRN; Protocol PRN Reason: per Hypoglycemia Standing Ord. Sodium Chloride (Ns) 1,000 mls @ 100 mls/hr IVCONT .Q10H [facility] Last Admin: 05/10/22 09:43 Dose: 100 mls/hr Documented By: MAX Insulin Human Lispro (Insulin Lispro 100 Unit/Ml 3 Ml Vial) 0 unit SUBCUT QIDACHS [facility]; Protocol Last Admin: 05/10/22 11:30 Dose: Not Given Documented By: CARMEN Non-Admin Reason: NPO Morphine Sulfate (Morphine Sulfate 2 Mg/Ml Cartridge) 2 mg IVPUSH Q4H PRN; Protocol PRN Reason: moderate pain Last Admin: 05/10/22 14:15 Dose: 2 mg Documented By: CARMEN Pharmacy Consult (Consult Rx Perform Med Rec) 1 each MISCELLANE ONCE PRN PRN Reason: Consult order Sodium Chloride (0.9 % Sodium Chloride Flush 3 Ml Syringe) 3 ml IVFLUSH QSHIFT [facility] Last Admin: 05/10/22 08:27 Dose: Not Given Documented By: MAX Non-Admin Reason: IV Running Labs CBC & Chem 7: 05/10/22 06:36 05/10/22 06:36 Labs: Laboratory Results - last 24 hr 05/09/22 05/09/22 05/10/22 18:16 21:26 06:36 MCV 87.9 MCH 29.3 MCHC 33.3 RDW 12.6 Plt Count 219 D MPV 9.6 Absolute Nucleated RBC 0.000 Nucleated RBC % (auto) 0.0 Anion Gap Estim Creat Clear Calc Estimated GFR POC Glucose 272 H 262 H Fasting Glucose Calcium Magnesium Blood Type Antibody Screen 05/10/22 05/10/22 05/10/22 06:36 07:09 08:28 MCV MCH MCHC RDW Plt Count MPV Absolute Nucleated RBC Nucleated RBC % (auto) Anion Gap 12 Estim Creat Clear Calc 69.8 Estimated GFR > 60 POC Glucose 235 H Fasting Glucose 264 H Calcium 8.2 L D Magnesium 1.6 Blood Type A Positive Antibody Screen NEGATIVE 05/10/22 05/10/22 11:46 15:08 MCV MCH MCHC RDW Plt Count MPV Absolute Nucleated RBC Nucleated RBC % (auto) Anion Gap Estim Creat Clear Calc Estimated GFR POC Glucose 219 H 216 H Fasting Glucose Calcium Magnesium Blood Type Antibody Screen Assessment and Plan (1) Closed hip fracture: Status: Acute Plan 76 yo F admitted after a fall resulting in L hip fx. 1. Left comminuted and moderately displaced inter trochanteric fracture of proximal femur plan for operative repair today pain control keep tracey until tomorrow pt tomorrow 2. DM new onset with a1c 11.5 sliding scale poc qidac given a1c > 9; likely orals + insulin upon d/c full code dvt pptx - per orthopedics post surgery Patient requires continued hospitalization due to hip fracture requiring operative repair. Quality Stroke Does the patient have a stroke diagnosis?: No VTE Prior VTE?: No VTE Risk Level:: Medical - moderate - high VTE Device Contraindication: N/A - Device Ordered VTE Drug Contraindication: Treatment Not Tolerated
--- NOTE | 2022-05-10 16:20 | HO.ANESPROP2 ---
[facility] Active Problems Active Problems: All Active Problems (Updated 06/09/21 @ 12:19 by Briana Barnett PA-C) Closed hip fracture (Acute) Diabetes mellitus, new onset (Acute) S/P hardware removal (Acute) Past Medical History Medical History HTN (hypertension) Family History Family History (Updated 05/09/22 @ 12:42 by Tai Craven MD) Other No family history of diabetes mellitus Family history of problems with anesthesia: No Surgical History Surgical History History of elbow surgery History of tonsillectomy History of Problems with Anesthesia: No Social History Social History (Updated 05/09/22 @ 12:42 by Tai Craven MD) Household Members: Children Housing: House Do you presently have visiting nurse or other home services: No Alcohol intake: current Alcohol intake frequency: 0-2 drinks per day Alcohol type: hard liquor Patient Tobacco Use Status: Former Tobacco user Tobacco use type: Cigarette service: No Current occupational status: retired [employer] Allergies Allergy/AdvReac Type Severity Reaction Status Date / Time No Known Allergies Allergy Verified 06/29/21 09:10 [No Known Allergies*] Active Medications: Current Medications Acetaminophen (Acetaminophen 325 Mg Tablet) 650 mg PO Q6H PRN PRN Reason: Pain, Mild (Pain Scale 1-3) Dextrose (Dextrose 50 % 25 Gm/50 Ml Syringe) 25 gm IVPUSH Q15M PRN; Protocol PRN Reason: per Hypoglycemia Standing Ord. Glucose (Glucose Gel 15 Gm Gel..Gram.) 15 gm PO Q15M PRN; Protocol PRN Reason: per Hypoglycemia Standing Ord. Sodium Chloride (Ns) 1,000 mls @ 100 mls/hr IVCONT .Q10H [facility] Last Admin: 05/10/22 09:43 Dose: 100 mls/hr Insulin Human Lispro (Insulin Lispro 100 Unit/Ml 3 Ml Vial) 0 unit SUBCUT QIDACHS [facility]; Protocol Last Admin: 05/10/22 11:30 Dose: Not Given Morphine Sulfate (Morphine Sulfate 2 Mg/Ml Cartridge) 2 mg IVPUSH Q4H PRN; Protocol PRN Reason: moderate pain Last Admin: 05/10/22 14:15 Dose: 2 mg Pharmacy Consult (Consult Rx Perform Med Rec) 1 each MISCELLANE ONCE PRN PRN Reason: Consult order Sodium Chloride (0.9 % Sodium Chloride Flush 3 Ml Syringe) 3 ml IVFLUSH QSHIFT [facility] Last Admin: 05/10/22 15:55 Dose: Not Given Home Medications Medication Instructions Recorded Confirmed Last Taken Type No Known Home Meds 05/09/22 05/09/22 Unknown History Exam Exam Date and Time: May 10, 2022 1620 Height,Weight and Vital Signs: Height 5 ft 4 in Weight 68.039 kg Last Vital Signs Temp 97.8 F 05/10/22 15:04 Pulse 101 H 05/10/22 15:04 Resp 18 05/10/22 15:04 BP 164/81 H 05/10/22 15:04 Pulse Ox 93 05/10/22 15:04 O2 Del Method 05/10/22 15:04 Pertinent Lab Results Pertinent Lab Results: Laboratory Tests 05/09/22 05/09/22 05/09/22 10:20 10:35 10:35 WBC 12.4 H RBC 4.14 L Hgb 12.2 Hct 35.2 L MCV 85.0 MCH 29.5 MCHC 34.7 RDW 12.3 Plt Count 295 MPV 9.6 Immature Gran % (Auto) 0.8 H Neut % (Auto) 83.6 H Lymph % (Auto) 7.3 L [place] % (Auto) 8.0 Eos % (Auto) 0.1 Baso % (Auto) 0.2 Lymph # (Auto) 0.9 L [place] # (Auto) 1.0 Eos # (Auto) 0.0 Baso # (Auto) 0.0 Abs Immat Gran (auto) 0.10 H Absolute Neuts (auto) 10.4 H Absolute Nucleated RBC 0.000 Nucleated RBC % (auto) 0.0 PT INR Sodium 133 L Potassium 4.8 Chloride 99 Carbon Dioxide 24 Anion Gap 15 BUN 20 H Creatinine 0.97 Estim Creat Clear Calc 47.4 Estimated GFR 56 POC Glucose 452 H* Random Glucose 535 H* Fasting Glucose Estimat Average Glucose Hemoglobin A1c % Calcium 9.0 Magnesium Total Bilirubin 0.9 AST 15 ALT 15 Alkaline Phosphatase 97 Total Protein 6.4 L Albumin 4.1 Urine Color Urine Appearance Urine pH Ur Specific [place] Urine Protein Urine Glucose (UA) Urine Ketones Urine Blood Urine Nitrite Ur Leukocyte Esterase Urine RBC Urine WBC Ur Squamous Epith Cells Urine Bacteria Urine Yeast COVID-19 (DAVID) COVID-[address] Com Blood Type Antibody Screen 05/09/22 05/09/22 05/09/22 10:35 10:35 12:38 WBC RBC Hgb Hct MCV MCH MCHC RDW Plt Count MPV Immature Gran % (Auto) Neut % (Auto) Lymph % (Auto) [place] % (Auto) Eos % (Auto) Baso % (Auto) Lymph # (Auto) [place] # (Auto) Eos # (Auto) Baso # (Auto) Abs Immat Gran (auto) Absolute Neuts (auto) Absolute Nucleated RBC Nucleated RBC % (auto) PT 10.6 INR 0.9 Sodium Potassium Chloride Carbon Dioxide Anion Gap BUN Creatinine Estim Creat Clear Calc Estimated GFR POC Glucose Random Glucose Fasting Glucose Estimat Average Glucose 283 Hemoglobin A1c % 11.5 Calcium Magnesium Total Bilirubin AST ALT Alkaline Phosphatase Total Protein Albumin Urine Color Urine Appearance Urine pH Ur Specific [place] Urine Protein Urine Glucose (UA) Urine Ketones Urine Blood Urine Nitrite Ur Leukocyte Esterase Urine RBC Urine WBC Ur Squamous Epith Cells Urine Bacteria Urine Yeast COVID-19 (DAVID) Negative COVID-[place] Com See Note Blood Type Antibody Screen 05/09/22 05/09/22 05/09/22 12:38 13:47 18:16 WBC RBC Hgb Hct MCV MCH MCHC RDW Plt Count MPV Immature Gran % (Auto) Neut % (Auto) Lymph % (Auto) [place] % (Auto) Eos % (Auto) Baso % (Auto) Lymph # (Auto) [place] # (Auto) Eos # (Auto) Baso # (Auto) Abs Immat Gran (auto) Absolute Neuts (auto) Absolute Nucleated RBC Nucleated RBC % (auto) PT INR Sodium Potassium Chloride Carbon Dioxide Anion Gap BUN Creatinine Estim Creat Clear Calc Estimated GFR POC Glucose 272 H 272 H Random Glucose Fasting Glucose Estimat Average Glucose Hemoglobin A1c % Calcium Magnesium Total Bilirubin AST ALT Alkaline Phosphatase Total Protein Albumin Urine Color YELLOW Urine Appearance HAZY Urine pH 5.5 Ur Specific [place] 1.010 Urine Protein NEG Urine Glucose (UA) >=1000 H Urine Ketones 5 Urine Blood NEG Urine Nitrite NEG Ur Leukocyte Esterase NEG Urine RBC 0 Urine WBC 0-2 Ur Squamous Epith Cells TRACE Urine Bacteria NONE Urine Yeast 3+ COVID-19 (DAVID) COVID-[employer] Com Blood Type Antibody Screen 05/09/22 05/10/22 05/10/22 21:26 06:36 06:36 WBC 8.1 RBC 3.48 L Hgb 10.2 L Hct 30.6 L MCV 87.9 MCH 29.3 MCHC 33.3 RDW 12.6 Plt Count 219 D MPV 9.6 Immature Gran % (Auto) Neut % (Auto) Lymph % (Auto) [place] % (Auto) Eos % (Auto) Baso % (Auto) Lymph # (Auto) [place] # (Auto) Eos # (Auto) Baso # (Auto) Abs Immat Gran (auto) Absolute Neuts (auto) Absolute Nucleated RBC 0.000 Nucleated RBC % (auto) 0.0 PT INR Sodium 135 Potassium 4.0 Chloride 105 Carbon Dioxide 22 Anion Gap 12 BUN 12 Creatinine 0.66 Estim Creat Clear Calc 69.8 Estimated GFR > 60 POC Glucose 262 H Random Glucose Fasting Glucose 264 H Estimat Average Glucose Hemoglobin A1c % Calcium 8.2 L D Magnesium 1.6 Total Bilirubin AST ALT Alkaline Phosphatase Total Protein Albumin Urine Color Urine Appearance Urine pH Ur Specific [place] Urine Protein Urine Glucose (UA) Urine Ketones Urine Blood Urine Nitrite Ur Leukocyte Esterase Urine RBC Urine WBC Ur Squamous Epith Cells Urine Bacteria Urine Yeast COVID-19 (DAVID) COVID-[address] Com Blood Type Antibody Screen 05/10/22 05/10/22 05/10/22 07:09 08:28 11:46 WBC RBC Hgb Hct MCV MCH MCHC RDW Plt Count MPV Immature Gran % (Auto) Neut % (Auto) Lymph % (Auto) [place] % (Auto) Eos % (Auto) Baso % (Auto) Lymph # (Auto) [place] # (Auto) Eos # (Auto) Baso # (Auto) Abs Immat Gran (auto) Absolute Neuts (auto) Absolute Nucleated RBC Nucleated RBC % (auto) PT INR Sodium Potassium Chloride Carbon Dioxide Anion Gap BUN Creatinine Estim Creat Clear Calc Estimated GFR POC Glucose 235 H 219 H Random Glucose Fasting Glucose Estimat Average Glucose Hemoglobin A1c % Calcium Magnesium Total Bilirubin AST ALT Alkaline Phosphatase Total Protein Albumin Urine Color Urine Appearance Urine pH Ur Specific [place] Urine Protein Urine Glucose (UA) Urine Ketones Urine Blood Urine Nitrite Ur Leukocyte Esterase Urine RBC Urine WBC Ur Squamous Epith Cells Urine Bacteria Urine Yeast COVID-19 (DAVID) COVID-[employer] Com Blood Type A Positive Antibody Screen NEGATIVE 05/10/22 15:08 WBC RBC Hgb Hct MCV MCH MCHC RDW Plt Count MPV Immature Gran % (Auto) Neut % (Auto) Lymph % (Auto) [place] % (Auto) Eos % (Auto) Baso % (Auto) Lymph # (Auto) [place] # (Auto) Eos # (Auto) Baso # (Auto) Abs Immat Gran (auto) Absolute Neuts (auto) Absolute Nucleated RBC Nucleated RBC % (auto) PT INR Sodium Potassium Chloride Carbon Dioxide Anion Gap BUN Creatinine Estim Creat Clear Calc Estimated GFR POC Glucose 216 H Random Glucose Fasting Glucose Estimat Average Glucose Hemoglobin A1c % Calcium Magnesium Total Bilirubin AST ALT Alkaline Phosphatase Total Protein Albumin Urine Color Urine Appearance Urine pH Ur Specific [place] Urine Protein Urine Glucose (UA) Urine Ketones Urine Blood Urine Nitrite Ur Leukocyte Esterase Urine RBC Urine WBC Ur Squamous Epith Cells Urine Bacteria Urine Yeast COVID-19 (DAVID) COVID-19 Clin Com Blood Type Antibody Screen Airway Mallampati Class: II TM Dist: >3cm Neck ROM: Full Denture: Upper and Lower Assessment and Plan Final Anesthetic Review Family History of Problems with Anesthesia: No History of Problems with Anesthesia: No NPO: Yes ASA Class: II Final Preanesthetic Review: No Changes in Pt Med Stat, Meds/Allgs Chart Reviewed, Consent Obtained/Reviewed and Anes Risks/Benef Reviewed Patient Risk: Intermediate Procedure Risk: Intermediate Anesthetic Plan Anesthetic Plan: GA Disposition: Standard PACU
--- NOTE | 2022-05-10 16:25 | W.PM.OPN ---
Operative Note Operative Note Date of Service: 05/10/22 Narrative: Operative Note Narrative: Preop diagnosis: 1. Left comminuted Inter trochanteric hip fracture Postop diagnosis: Same Procedure: 1. Left hip fracture Short femoral IM nailing Surgeon: Maria Rivero MD 1st assist: Omid Diggs MD Anesthesia: General Anesthesia Findings: comminuted inter trochanteric hip fracture Implants: Left [place] short Gamma 3 intramedullary femoral nail 11 mm x 180 mm, 125 degrees, set screw, 95 mm lag screw,, and a 5.0 cortical distal locking screw EBL: 100.0 ml Specimen: none Drains: None Complications: None Disposition: Brought to the recovery room in stable condition Plan: abx in 6-8 hrs Admit back to floor, hospitalist service. PT Weightbear as tolerated. Follow-up in 10-14 days for wound check, suture removal pre clinic radiographs Indications: The patient is 76 years old with a comminuted left inter trochanteric femur fracture . The risks and benefits of operative treatment, including but not limited to risk of damage to blood vessels, nerves, tendons, infection, recurrence, persistent pain or numbness, incomplete resolution of preoperative symptoms, nonunion, malunion, risks of anesthesia or need for further surgery were discussed with the patient and they wished to proceed with surgery. Procedure: Once consent was obtained patient was brought back to the operating suite and placed in the operating fracture table in a supine position. The well leg was positioned in some hip flexion external rotation and abduction. A gentle fracture reduction was performed applying traction and gentle internal rotation through the fracture table. Perioperative antibiotics and anesthesia was administered by the anesthesia team. The C-arm was properly positioned and used throughout the case to assess our reduction and placement of all implants. The left hip and lower extremity was prepped and draped in a standard surgical fashion. Once assured we obtained a satisfactory reduction of our IT hip fracture, a 3 cm longitudinal incision was made proximal to the greater trochanter. A guidewire was passed through the tip of the greater trochanter and into the proximal femur. Its position was assessed on orthogonal fluoroscopic images. Once satisfied, proximal aspect of the can now was prepared using the15.5 mm conical Reamer through a soft tissue protector. The ball-tipped guidewire was then advanced through the femoral canal down to the distal femur. C-arm images were again obtained to assure proper position. We then reamed sequentially up to a 12.5 mm Reamer, opening up the femoral canal in preparation for placement of the femoral nail. An 11 mm x 180 mm, 125 degree short Gamma 3 femoral intramedullary nail was then advanced into the femoral canal. It was advanced such that the lag screw would be properly positioned within the femoral head. At this point the ball-tipped guidewire was removed. The drill guide for the lag screw was then advanced to the skin to help identify proper location of the skin incision. A 2 cm longitudinal incision was then made using a 15. Blade. A hemostat was then used to dissected down to the femoral shaft. The drill guide was then advanced on to the femoral shaft. The guidewire for the gamma 3 lag screw was then advanced into the neck of the femur. Orthogonal C-arm images were then obtained as the guidewire position was adjusted to obtain a center center position in the femoral head. Once satisfied, the appropriate lag screw length was selected, the guidewire removed and the lag screw advanced into the femoral head. Screwdriver handle was position parallel to the floor to allow for proper seating of the set screw. The set screw was then placed tight and then backed out a quarter turn. The guide handle was adjusted for placement of the distal locking screw. The drill guide was advanced to the skin to allow for proper skin skin incision placement. A 2 cm longitudinal incision was made using a 15. Blade. A hemostat it was used to dissect down to the femoral shaft. The 4.2 mm drill was advanced bicortically through the femoral shaft and the screw length measured with a depth gauge. The appropriate length 5.0 mm cortical distal locking screw was then placed. Final AP and lateral fluoroscopic images were then obtained. The wounds were copiously irrigated with normal saline. The subcutaneous layer was closed with 0 Vicryl and 2 0 Vicryl suture, and the skin edges were reapproximated with skin amelia. The wounds were infiltrated with some 1% lidocaine with epinephrine for postop pain control and a sterile dressing was applied. The patient appears to have tolerated the procedure well and with no complications. She was placed on her bed and brought to the recovery room in stable condition.
[2022-05-10 19:04] LABS: Glucose, Whole Blood 220 mg/dL (60-115)
[2022-05-10] MEDS: 0.9 % Sodium Chloride Flush 3 ML SYRINGE IVFLUSH (19:44)
[2022-05-10 20:10] LABS: Glucose, Whole Blood 281 mg/dL (60-115)
[2022-05-10] MEDS: Insulin Lispro 100 UNIT/ML 3 ML VIAL SUBCUT (20:22)
[2022-05-10] MEDS: ceFAZolin Sodium/Dextrose,Iso 2 GM/50 ML PIGGYBACK IV (22:54)
[2022-05-11 04:00] VITALS: BP 165/72; PULSE 101; RESP 17; TEMP 36.2; O2SAT 95
[2022-05-11] MEDS: 0.9 % Sodium Chloride 1,000 ML 100 ML IVCONT (04:54)
[2022-05-11 07:20] VITALS: BP 178/79; PULSE 97; RESP 16; TEMP 36.8; O2SAT 95
--- NOTE | 2022-05-11 07:32 | PM.PNORT ---
Subjective Subjective Date of Service: 05/11/22 Interval history: POD1 s/p lt hip IM Nail. Patient is resting comfortably in bed. No overnight events. Pain is well managed. No additional complaints. Physical Exam Vital Signs: Vital Signs: Last Vital Signs Temp 98.2 F 05/11/22 07:20 Pulse 97 05/11/22 07:20 Resp 16 05/11/22 07:20 BP 178/79 H 05/11/22 07:20 Pulse Ox 95 05/11/22 07:20 O2 Del Method 05/11/22 07:20 O2 Flow Rate 3 05/11/22 04:00 Oxygen Flow Rate 3 05/10/22 18:04 BMI result Body Mass Index 25.7 Const: General: cooperative, healthy appearing and no acute distress Resp: Effort & Inspection: normal respiratory effort and able to speak in complete sentences Cardio: Rate: regular rate Peripheral pulses: Peripheral pulses 2+ throughout GI: Palpation (GI): Soft to palpation Skin: Lesions: no lesions Rashes: no rashes Extrem: Other: Left hip bandages are clean, dry, and intact. Able to dorsiflex and plantarflex. Sensation intact. Procedures Date of Service Date of Service: 05/11/22 Progress Note: A&P Assessment and plan (1) Closed hip fracture: Status: Acute Assessment and Plan: Continue pain mgmnt Begin Lovenox for dvt ppx begin PT for lt hip IM Nail - WBAT Dispo planning-Pending PT eval, pain mgmnt Time Spent With Patient Time: Total time spent is greater than 50% in coordination of care (as documented) at patient's floor/unit and/or counseling patient: Quality Stroke Does the patient have a stroke diagnosis?: No VTE Prior VTE?: No VTE Risk Level:: Medical - moderate - high VTE Device Contraindication: N/A - Device Ordered VTE Drug Contraindication: Treatment Not Tolerated
[2022-05-11 07:35] LABS: Glucose, Whole Blood 215 mg/dL (60-115)
[2022-05-11 07:43] LABS: Hematocrit 27.7 % (37.0-47.0); Hemoglobin 9.3 g/dl (12.0-16.0)
[2022-05-11] MEDS: Insulin Lispro 100 UNIT/ML 3 ML VIAL SUBCUT ×4 (08:24→21:07)
[2022-05-11] MEDS: oxyCODONE HCl Immed Release 5 MG TABLET PO ×3 (08:39→21:05)
[2022-05-11] MEDS: Enoxaparin Sodium 40 MG/0.4 ML SYRINGE SUBCUT (08:39)
--- NOTE | 2022-05-11 09:09 | HO.PM.IMPN ---
Subjective Subjective Date of Service: 05/11/22 Interval History: seen and examined this AM on the phone, denies pain still refusing rehab Review of Systems negative except interval history Physical Exam Vital Signs: Vital Signs: Last Vital Signs Temp 98.2 F 05/11/22 07:20 Pulse 97 05/11/22 07:20 Resp 16 05/11/22 07:20 BP 178/79 H 05/11/22 07:20 Pulse Ox 95 05/11/22 07:20 O2 Del Method 05/11/22 07:20 O2 Flow Rate 3 05/11/22 04:00 Oxygen Flow Rate 3 05/10/22 18:04 BMI result Body Mass Index 25.7 Const: Other: General - no acute distress, appears comfortable Cardiovascular - regular rate and rhythm, S1-S2 Lungs - normal respiratory effort, clear to auscultation bilaterally, no wheezing Abdomen - soft, nontender, no rebound or guarding Extremities - no edema bilaterally Neuro - awake and alert, no focal deficits Objective Data Active Medications Acetaminophen (Acetaminophen 325 Mg Tablet) 650 mg PO Q6H PRN PRN Reason: Pain, Mild (Pain Scale 1-3) Dextrose (Dextrose 50 % 25 Gm/50 Ml Syringe) 25 gm IVPUSH Q15M PRN; Protocol PRN Reason: per Hypoglycemia Standing Ord. Enoxaparin Sodium (Enoxaparin Sodium 40 Mg/0.4 Ml Syringe) 40 mg SUBCUT Q24H [facility] [place] Last Admin: 05/11/22 08:39 Dose: 40 mg Documented By: RIANNA Fentanyl (Fentanyl Citrate/Pf 100 Mcg/2 Ml Vial) 50 mcg IVPUSH Q5M PRN; Protocol PRN Reason: Pain, Severe (Pain Scale 7-10) Glucose (Glucose Gel 15 Gm Gel..Gram.) 15 gm PO Q15M PRN; Protocol PRN Reason: per Hypoglycemia Standing Ord. Sodium Chloride (Ns) 1,000 mls @ 100 mls/hr IVCONT .Q10H [facility] [place] Last Admin: 05/11/22 04:54 Dose: 100 mls/hr Documented By: GUME Insulin Human Lispro (Insulin Lispro 100 Unit/Ml 3 Ml Vial) 0 unit SUBCUT QIDACHS [facility]; Protocol Last Admin: 05/11/22 08:24 Dose: 4 unit Documented By: RIANNA Morphine Sulfate (Morphine Sulfate 2 Mg/Ml Cartridge) 2 mg IVPUSH Q4H PRN; Protocol PRN Reason: moderate pain Last Admin: 05/10/22 14:15 Dose: 2 mg Documented By: CARMEN Ondansetron HCl (Ondansetron Hcl 4 Mg/2 Ml Vial) 4 mg IVPUSH ONCE PRN PRN Reason: Nausea and Vomiting Pharmacy Consult (Consult Rx Perform Med Rec) 1 each MISCELLANE ONCE PRN PRN Reason: Consult order Sodium Chloride (0.9 % Sodium Chloride Flush 3 Ml Syringe) 3 ml IVFLUSH QSHIFT [facility] [place] Last Admin: 05/11/22 07:04 Dose: Not Given Documented By: RIANNA Non-Admin Reason: IV Running Labs CBC & Chem 7: 05/11/22 07:31 05/10/22 06:36 Labs: Laboratory Results - last 24 hr 05/10/22 05/10/22 05/10/22 08:28 11:46 15:08 POC Glucose 219 H 216 H Blood Type A Positive Antibody Screen NEGATIVE 05/10/22 05/10/22 05/11/22 16:32 19:49 07:19 POC Glucose 220 H 281 H 215 H Blood Type Antibody Screen Assessment and Plan (1) Closed hip fracture: Status: Acute Plan 76 yo F admitted after a fall resulting in L hip fx. 1. Left comminuted and moderately displaced inter trochanteric fracture of proximal femur POD #1 pain control dc tracey pt/ot pt refusing rehab at this time, plans for discharge home 2. DM new onset with a1c 11.5 sliding scale poc qidac ideally would benefit from insulin, but patient does not seem keen on this at this time -- may need to d/c on just orals 3. Elevated BP no prior diagnosis of HTN will monitor today and consider starting antihypertensives if remains significantly elevated full code dvt pptx - per orthopedics post surgery Patient requires continued hospitalization due to hip fracture -- she is POD #1 today. Quality Stroke Does the patient have a stroke diagnosis?: No VTE Prior VTE?: No VTE Risk Level:: Medical - moderate - high VTE Device Contraindication: N/A - Device Ordered VTE Drug Contraindication: Treatment Not Tolerated
[2022-05-11 10:51] VITALS: BP 155/88; PULSE 91; RESP 18; TEMP 36.6; O2SAT 96
[2022-05-11 11:20] LABS: Glucose, Whole Blood 261 mg/dL (60-115)
--- NOTE | 2022-05-11 11:22 | HO.POSTANES ---
Post Anesthesia Evaluation Post Anesthesia Evaluation Vital Signs: Vital Signs Temp Pulse Resp BP Pulse Ox O2 Del Method O2 Flow Rate 05/11/22 10:51 98 F 91 18 155/88 H 96 Room Air 05/11/22 07:20 98.2 F 97 16 178/79 H 95 Room Air 05/11/22 04:00 97.1 F 101 H 17 165/72 H 95 Nasal Cannula 3 05/10/22 23:57 96.9 F 106 H 17 178/76 H 95 Room Air Anesthesia: General Mental Status: Awake Pain Control: Satisfactory Nausea/Vomiting: None Hydration: Adequate Anesthesia-Related Issues: No Anes. Related Issues
--- NOTE | 2022-05-11 14:13 | MHC.CM.PN ---
CM MET W/PT TO DISCUSS DISPO, PT REPORTS SHE DIDN'T DO WELL SHE THOUGHT W/PT AND IS WILLING TO GO TO STR HOWEVER ONLY [facility] IN GIVEN, REFERRAL PLACED AND PT HAS BED OFFER FOR TOMORROW 05/12/22, PT ALSO COMPLETED A HCP W/THIS CM NAMING HER SON KENNETH VIRK [phone] HER [facility], PT PROVIDED W/EDUCATIONAL INFORMATION, ORIGINAL AND 2 COPIES, COPY UPLOADED TO [facility] AND PLACED IN CHART. ANTIC PT WILL BE CLEARED FOR D/C TOMORROW 05/12
[2022-05-11] MEDS: 0.9 % Sodium Chloride Flush 3 ML SYRINGE IVFLUSH (14:15)
[2022-05-11 15:28] VITALS: BP 175/69; PULSE 95; RESP 18; TEMP 36.7; O2SAT 93
[2022-05-11 16:15] LABS: Glucose, Whole Blood 214 mg/dL (60-115)
[2022-05-11 19:15] VITALS: BP 176/69; PULSE 97; RESP 18; TEMP 36.3; O2SAT 96
[2022-05-11 19:33] LABS: Glucose, Whole Blood 210 mg/dL (60-115)
[2022-05-11] MEDS: ondansetron HCL 4 MG/2 ML VIAL IVPUSH (21:19)
[2022-05-11 23:22] VITALS: BP 129/57; PULSE 88; RESP 17; TEMP 36.4; O2SAT 95
[2022-05-12] VITALS (8 sets, daily range): BP systolic 150–204; BP diastolic 48–84; PULSE 84–112; RESP 17–22; TEMP 36.4–37.1; O2SAT 93–94
[2022-05-12] MEDS: 0.9 % Sodium Chloride Flush 3 ML SYRINGE IVFLUSH ×2 (00:29→07:42)
[2022-05-12] MEDS: Enoxaparin Sodium 40 MG/0.4 ML SYRINGE SUBCUT (04:07)
[2022-05-12 05:52] LABS: MANUAL DIFF FLAG NO
[2022-05-12 05:56] LABS: Basophils Percent Auto 0.6 % (0-2); Eosinophils Absolute Auto 0.1 X10*3/uL (0.0-0.4); Eosinophils Percent Auto 1.8 % (0-4); Hematocrit 26.1 % (37.0-47.0); Hemoglobin 8.7 g/dl (12.0-16.0); Imm Gran Pct Auto 1.6 % (0.0-0.4); Lymphocytes Absolute Auto 1.5 X10*3/uL (1.2-4.9); Lymphocytes Percent Auto 24.2 % (20-40); Mean Corpuscular HGB Conc 33.3 g/dl (31.0-35.0); Mean Corpuscular Hemoglobin 29.4 pg (27.0-33.0); Mean Corpuscular Volume 88.2 fL (80.0-98.0); Mean Platelet Volume 9.6 fL (9.4-12.3); Monocytes Absolute Auto 0.8 X10*3/uL (0.1-1.2); Monocytes Percent Auto 12.7 % (2-11); Neutrophils Absolute Auto 3.6 x10*3/uL (2.0-8.3); Neutrophils Percent Auto 59.1 % (45-73); Platelet Count 262 X10*3/uL (160-400); Red Blood Count 2.96 X10*6/uL (4.20-5.50); Red Cell Distribution Width 12.5 % (11.0-16.0); White Blood Count 6.2 X10*3/uL (4.8-10.8)
[2022-05-12 06:42] LABS: Anion Gap 11 (12-20); Blood Urea Nitrogen 11 mg/dL (9-16); Calcium 8.2 mg/dL (8.4-10.2); Carbon Dioxide 24 mmol/L (22-29); Chloride 105 mmol/L (96-108); Creatinine Clr Calc Pharmacy 74.3; Estimated Glomerular Filt Rate > 60; Glucose Random 223 mg/dL (60-115); Potassium 3.7 mmol/L (3.3-5.1); Sodium 136 mmol/L (135-145)
[2022-05-12 07:35] LABS: Glucose, Whole Blood 233 mg/dL (60-115)
[2022-05-12] MEDS: Insulin Lispro 100 UNIT/ML 3 ML VIAL SUBCUT ×2 (07:41→12:17)
--- NOTE | 2022-05-12 07:49 | PM.PNORT ---
Subjective Subjective Date of Service: 05/12/22 Interval history: POD 2 status post left hip IM nail. Patient is resting in bed comfortably. No overnight events. Pain is well managed. No additional complaints. Physical Exam Vital Signs: Vital Signs: Last Vital Signs Temp 98.8 F 05/12/22 07:20 Pulse 84 05/12/22 04:00 Resp 18 05/12/22 07:20 BP 150/48 H 05/12/22 04:00 Pulse Ox 94 05/12/22 04:00 O2 Del Method 05/12/22 04:00 O2 Flow Rate 3 05/11/22 04:00 Oxygen Flow Rate 3 05/10/22 18:04 BMI result Body Mass Index 25.7 Const: General: cooperative, healthy appearing and no acute distress Resp: Effort & Inspection: normal respiratory effort and able to speak in complete sentences Cardio: Rate: regular rate Peripheral pulses: Peripheral pulses 2+ throughout GI: Palpation (GI): Soft to palpation Skin: Lesions: no lesions Rashes: no rashes Extrem: Other: Left hip bandage is clean dry and intact. Patient is able to dorsiflex and plantar flex. Sensation. Procedures Date of Service Date of Service: 05/12/22 Progress Note: A&P Assessment and plan (1) Closed hip fracture: Status: Acute Plan Continue pain mgmnt Continue Lovenox for dvt ppx Continue PT for left hip IM nail- WBAT Dispo planning-Pending rehab placement, pain management Time Spent With Patient Time: Total time spent is greater than 50% in coordination of care (as documented) at patient's floor/unit and/or counseling patient: Quality Stroke Does the patient have a stroke diagnosis?: No VTE Prior VTE?: No VTE Risk Level:: Medical - moderate - high VTE Device Contraindication: N/A - Device Ordered VTE Drug Contraindication: Treatment Not Tolerated
--- NOTE | 2022-05-12 09:37 | HO.PM.IMPN ---
Subjective Subjective Date of Service: 05/12/22 Interval History: seen and examined this AM on the phone, denies pain agreeable on rehab d/w her re: blood transfusion, she is agreeable; risks/benefits/alternatives explained Review of Systems negative except interval history Physical Exam Vital Signs: Vital Signs: Last Vital Signs Temp 98.8 F 05/12/22 07:20 Pulse 88 05/12/22 07:20 Resp 18 05/12/22 07:20 BP 182/58 H 05/12/22 07:20 Pulse Ox 94 05/12/22 04:00 O2 Del Method 05/12/22 04:00 O2 Flow Rate 3 05/11/22 04:00 Oxygen Flow Rate 3 05/10/22 18:04 BMI result Body Mass Index 25.7 Const: Other: General - no acute distress, appears comfortable Cardiovascular - regular rate and rhythm, S1-S2 Lungs - normal respiratory effort, clear to auscultation bilaterally, no wheezing Abdomen - soft, nontender, no rebound or guarding Extremities - no edema bilaterally Neuro - awake and alert, no focal deficits Objective Data Active Medications Acetaminophen (Acetaminophen 325 Mg Tablet) 650 mg PO Q6H PRN PRN Reason: Pain, Mild (Pain Scale 1-3) Amlodipine Besylate (Amlodipine Besylate 5 Mg Tablet) 5 mg PO DAILY [facility]; Protocol Dextrose (Dextrose 50 % 25 Gm/50 Ml Syringe) 25 gm IVPUSH Q15M PRN; Protocol PRN Reason: per Hypoglycemia Standing Ord. Enoxaparin Sodium (Enoxaparin Sodium 40 Mg/0.4 Ml Syringe) 40 mg SUBCUT Q24H [facility] Last Admin: 05/12/22 04:07 Dose: 40 mg Documented By: TAMIKA Fentanyl (Fentanyl Citrate/Pf 100 Mcg/2 Ml Vial) 50 mcg IVPUSH Q5M PRN; Protocol PRN Reason: Pain, Severe (Pain Scale 7-10) Glucose (Glucose Gel 15 Gm Gel..Gram.) 15 gm PO Q15M PRN; Protocol PRN Reason: per Hypoglycemia Standing Ord. Insulin Human Lispro (Insulin Lispro 100 Unit/Ml 3 Ml Vial) 0 unit SUBCUT QIDACHS [facility]; Protocol Last Admin: 05/12/22 07:41 Dose: 4 unit Documented By: ROMELIA Morphine Sulfate (Morphine Sulfate 2 Mg/Ml Cartridge) 2 mg IVPUSH Q4H PRN; Protocol PRN Reason: moderate pain Last Admin: 05/10/22 14:15 Dose: 2 mg Documented By: CARMEN Oxycodone HCl (Oxycodone Hcl Immed Release 5 Mg Tablet) 5 mg PO Q6H PRN PRN Reason: Pain, Severe (Pain Scale 7-10) Last Admin: 05/11/22 21:05 Dose: 5 mg Documented By: EDWIN Pharmacy Consult (Consult Rx Perform Med Rec) 1 each MISCELLANE ONCE PRN PRN Reason: Consult order Sodium Chloride (0.9 % Sodium Chloride Flush 3 Ml Syringe) 3 ml IVFLUSH QSHIFT [facility] Last Admin: 05/12/22 07:42 Dose: 3 ml Documented By: ROMELIA Labs CBC & Chem 7: 05/12/22 05:18 05/12/22 05:18 Labs: Laboratory Results - last 24 hr 05/10/22 05/11/22 05/11/22 08:28 10:52 15:56 MCV MCH MCHC RDW Plt Count MPV Immature Gran % (Auto) Neut % (Auto) Lymph % (Auto) [place] % (Auto) Eos % (Auto) Baso % (Auto) Lymph # (Auto) [place] # (Auto) Eos # (Auto) Baso # (Auto) Abs Immat Gran (auto) Absolute Neuts (auto) Absolute Nucleated RBC Nucleated RBC % (auto) Anion Gap Estim Creat Clear Calc Estimated GFR POC Glucose 261 H 214 H Random Glucose Calcium Blood Type A Positive Antibody Screen NEGATIVE Crossmatch See Detail 05/11/22 05/12/22 05/12/22 19:23 05:18 05:18 MCV 88.2 MCH 29.4 MCHC 33.3 RDW 12.5 Plt Count 262 MPV 9.6 Immature Gran % (Auto) 1.6 H Neut % (Auto) 59.1 Lymph % (Auto) 24.2 [place] % (Auto) 12.7 H Eos % (Auto) 1.8 Baso % (Auto) 0.6 Lymph # (Auto) 1.5 [place] # (Auto) 0.8 Eos # (Auto) 0.1 Baso # (Auto) 0.0 Abs Immat Gran (auto) 0.10 H Absolute Neuts (auto) 3.6 Absolute Nucleated RBC 0.000 Nucleated RBC % (auto) 0.0 Anion Gap 11 L Estim Creat Clear Calc 74.3 Estimated GFR > 60 POC Glucose 210 H Random Glucose 223 H D Calcium 8.2 L Blood Type Antibody Screen Crossmatch 05/12/22 07:18 MCV MCH MCHC RDW Plt Count MPV Immature Gran % (Auto) Neut % (Auto) Lymph % (Auto) [place] % (Auto) Eos % (Auto) Baso % (Auto) Lymph # (Auto) [place] # (Auto) Eos # (Auto) Baso # (Auto) Abs Immat Gran (auto) Absolute Neuts (auto) Absolute Nucleated RBC Nucleated RBC % (auto) Anion Gap Estim Creat Clear Calc Estimated GFR POC Glucose 233 H Random Glucose Calcium Blood Type Antibody Screen Crossmatch Assessment and Plan (1) Closed hip fracture: Status: Acute Plan 76 yo F admitted after a fall resulting in L hip fx. 1. Left comminuted and moderately displaced inter trochanteric fracture of proximal femur POD #2 pain control pt/ot plan for str start bowel regime cleared by ortho for d/c after prbc transfusion 2. Acute blood loss anemia 2 units prbcs recommended by ortho, pt agreeable 3. DM new onset with a1c 11.5 sliding scale poc qidac iwill need outpatient f/u 4. HTN undiagnosed previously startn norvasc 5mg full code dvt pptx - per orthopedics post surgery Dispo: plan for transfer to rehab today after prbc transfusion Quality Stroke Does the patient have a stroke diagnosis?: No VTE Prior VTE?: No VTE Risk Level:: Medical - moderate - high VTE Device Contraindication: N/A - Device Ordered VTE Drug Contraindication: Treatment Not Tolerated
[2022-05-12] MEDS: polyethylene glycoL 3350 17 GM POWD.PACK PO (10:23)
[2022-05-12] MEDS: Docusate Sodium 100 MG CAPSULE PO (10:24)
[2022-05-12] MEDS: amLODIPine Besylate 5 MG TABLET PO (10:24)
--- NOTE | 2022-05-12 11:17 | PM.DS ---
DS: Providers Provider Date of Service: 05/12/22 Date of admission: 05/09/22 12:40 Primary care physician: Sharan Nogueira MD Consults: 05/09/22 12:40 Consult to Orthopedics Routine Consulting Provider: Omid Diggs Reason for consultation: hip fracture DS: Diagnosis Discharge Diagnosis (1) Closed hip fracture: Status: Acute (2) Diabetes mellitus, new onset: Status: Acute (3) HTN (hypertension): Status: Acute (4) Acute blood loss anemia: Status: Acute DS: Summary Hospital Course Hospital Course: HPI from admission H&P: '76F presented with mechanical fall. patient had been feeling well on day of presentation.? She was reaching for something in her refrigerator and slipped and fell on her left side.? She had significant pain was unable to get up.? She called EMS.? In ED found to have left hip fracture.? Also incidentally found to have hyperglycemia, A1c of 11.5,? consistent with new onset diabetes, patient was? unaware of diagnosis.? She denied any previous past medical history and was not on any medications at home. Hospital Course: Patient was admitted for hip fracture for which she will underwent operative repair. Patient's hospital course was complicated by acute blood loss anemia for which she was transfused 1 unit of packed red cells (2 units were ordered, however patient declined the 2nd unit). Additionally, patient was noted to be hypoglycemic at the time of admission and hemoglobin A1c was checked which was greater than 11. She was treated with sliding scale in the hospital and likely will need insulin when discharged from correction facility. Furthermore, patient significantly elevated blood pressures in the 150-200 range systolic. Initially this was deemed secondary to pain, however this persisted as her pain improved and hence she likely has undiagnosed hypertension. She has been initiated on Norvasc 5 mg daily and likely will need up titration of this with possibly a secondary agent as well. The patient is seen and examined on the day of discharge. She is stable for transition to short-term rehabilitation Time Spent with Patient Time attestation: Total time spent providing and/or coordinating discharge services: Discharge coordination time: Greater than 30 minutes Quality: Safe Use of Opioids Does Pt have an Active Cancer Diagnosis on the Problem List?: No Quality: Stroke Does the patient have a stroke diagnosis?: No Physical Exam Vital Signs: Vital Signs: Last Vital Signs Temp 98.2 F 05/12/22 10:21 Pulse 110 H 05/12/22 10:21 Resp 18 05/12/22 10:21 BP 178/69 H 05/12/22 10:21 Pulse Ox 94 05/12/22 04:00 O2 Del Method 05/12/22 04:00 O2 Flow Rate 3 05/11/22 04:00 Oxygen Flow Rate 3 05/10/22 18:04 BMI result Body Mass Index 25.7 Const: Other: General - no acute distress, appears comfortable Cardiovascular - regular rate and rhythm, S1-S2 Lungs - normal respiratory effort, clear to auscultation bilaterally, no wheezing Abdomen - soft, nontender, no rebound or guarding Extremities - dressin c/d/i Neuro - awake and alert, no focal deficits DS: Data Data Completed and Pending Labs on day of discharge: Laboratory Results - last 24 hr 05/10/22 05/11/22 05/11/22 08:28 10:52 15:56 WBC RBC Hgb Hct MCV MCH MCHC RDW Plt Count MPV Immature Gran % (Auto) Neut % (Auto) Lymph % (Auto) [place] % (Auto) Eos % (Auto) Baso % (Auto) Lymph # (Auto) [place] # (Auto) Eos # (Auto) Baso # (Auto) Abs Immat Gran (auto) Absolute Neuts (auto) Absolute Nucleated RBC Nucleated RBC % (auto) Sodium Potassium Chloride Carbon Dioxide Anion Gap BUN Creatinine Estim Creat Clear Calc Estimated GFR POC Glucose 261 H 214 H Random Glucose Calcium Blood Type A Positive Antibody Screen NEGATIVE Crossmatch See Detail 05/11/22 05/12/22 05/12/22 19:23 05:18 05:18 WBC 6.2 RBC 2.96 L Hgb 8.7 L Hct 26.1 L MCV 88.2 MCH 29.4 MCHC 33.3 RDW 12.5 Plt Count 262 MPV 9.6 Immature Gran % (Auto) 1.6 H Neut % (Auto) 59.1 Lymph % (Auto) 24.2 [place] % (Auto) 12.7 H Eos % (Auto) 1.8 Baso % (Auto) 0.6 Lymph # (Auto) 1.5 [place] # (Auto) 0.8 Eos # (Auto) 0.1 Baso # (Auto) 0.0 Abs Immat Gran (auto) 0.10 H Absolute Neuts (auto) 3.6 Absolute Nucleated RBC 0.000 Nucleated RBC % (auto) 0.0 Sodium 136 Potassium 3.7 Chloride 105 Carbon Dioxide 24 Anion Gap 11 L BUN 11 Creatinine 0.62 Estim Creat Clear Calc 74.3 Estimated GFR > 60 POC Glucose 210 H Random Glucose 223 H D Calcium 8.2 L Blood Type Antibody Screen Crossmatch 05/12/22 07:18 WBC RBC Hgb Hct MCV MCH MCHC RDW Plt Count MPV Immature Gran % (Auto) Neut % (Auto) Lymph % (Auto) [place] % (Auto) Eos % (Auto) Baso % (Auto) Lymph # (Auto) [place] # (Auto) Eos # (Auto) Baso # (Auto) Abs Immat Gran (auto) Absolute Neuts (auto) Absolute Nucleated RBC Nucleated RBC % (auto) Sodium Potassium Chloride Carbon Dioxide Anion Gap BUN Creatinine Estim Creat Clear Calc Estimated GFR POC Glucose 233 H Random Glucose Calcium Blood Type Antibody Screen Crossmatch Discharge Plan Discharge Patient Disposition: [facility] Discharge Diagnosis: Hip fracture HTN DM Referrals: [facility] [Outside] - 1 Day (SHORT TERM REHAB) Briana Barnett PA-C [Physician Gardening Supervisor] - 2 Weeks Sharan Nogueira MD [Primary Care Provider] - 1 Week Discharge Medications: New enoxaparin 40 mg/0.4 mL Syringe 40 mg subcut Q24H 42 Days Qty: 16.8 0RF polyethylene glycol 3350 17 gram Powder In Packet 17 g PO DAILY Qty: 30 0RF amlodipine 5 mg Tablet 5 mg PO DAILY Qty: 30 0RF Protocol: Hold for SBP< HOLD for SBP < : 90 docusate sodium 100 mg Capsule 100 mg PO BID Qty: 60 0RF insulin lispro [Humalog U-100 Insulin] 100 unit/mL Solution See Protocol subcut QIDACHS 98 Days Qty: 10 0RF Protocol: Insulin Correction Scale Less than or equal to 110 ---- Give (units): 0 111 to 150 Give (units): 0 151 to 200 Give (units): 2 201 to 250 Give (units): 4 251 to 300 Give (units): 6 301 to 350 Give (units): 8 Greater than 350 Give (units): 10 Call MD if Blood Glucose > : 350 oxycodone 5 mg Tablet 5 mg PO Q6H PRN (Reason: Pain, Severe (Pain Scale 7-10)) Qty: 20 0RF Rx Instructions: Partial Fill upon patient request. Discharge Orders: Discharge Order (Routine); Ordered 05/12/22 Ordered By: Kal Rucker Diet: Advance to usual diet Activity on Discharge: As tolerated Stand Alone Forms: Patient Portal Discharge page Care Plan Goals: To complete Rehab at [facility] Health Concerns: Hip fracture newly diagnosed DM newly diagnosed HTN Plan of Treatment: PT at rehab Take insulin Take norvasc Assessment: see discharge summary
--- NOTE | 2022-05-12 11:17 | MHC.CM.PN ---
PT TO BE MEDICALLY CLEARED FOR D/C AFTER TRANSFUSIONS X2, [place] AWARE AND D/C OF 4PM ARRANGED W/ACTION FOR BLS TRANSPORT
[2022-05-12 11:38] LABS: Glucose, Whole Blood 303 mg/dL (60-115)
[2022-05-12 12:29] LABS: COVID-19 Test Negative (Negative); IDNOW Serial# 55D5AD1C
[2022-05-12] MEDS: LORazepam 0.5 MG TABLET PO (14:10)
--- NOTE | 2022-05-12 15:44 | PC.NURSE ---
Pt's BP 204/84 10:10 pre blood transfusion was given norvasc , pt asymptomatic but stressed, during blood transfusion BP 200/78, given ordered 1 dose ativan, had large BM just after blood transfusion, BP down 174/80, Dr Rucker notified and ordered discharge
== END 2022-05-12 16:53 | disposition skilled nursing facility (03) | DRG 481 ==
LOC: HO.ED 12:08 → HO.EDOVER 12:44 → HO.S3 05-10 07:52
PROVIDERS: Orthopaedic Surgery; Physician Assistant; Admitting Provider Internal Medicine; Emergency Provider Emergency Medicine; PCP Internal Medicine; Visit Provider Family Medicine
PROC: 0QS736Z Reposition Left Upper Femur with Intramedullary Internal Fixation Device, Percutaneous Approach (ICD-10-PCS; principal; 2022-05-10 16:00)
DX: S72.142A Displaced intertrochanteric fracture of left femur, initial encounter for closed fracture (principal); D62 Acute posthemorrhagic anemia; W18.30XA Fall on same level, unspecified, initial encounter; Y92.000 Kitchen of unspecified non-institutional (private) residence as the place of occurrence of the external cause; I10 Essential (primary) hypertension; E11.65 Type 2 diabetes mellitus with hyperglycemia; Z20.822 Contact with and (suspected) exposure to COVID-19; Z87.891 Personal history of nicotine dependence; Z79.899 Other long term (current) drug therapy
CPT/HCPCS: 36415; 71045; 73502; 80048; 80053; 81001; 82947; 83036; 83735; 85014; 85018; 85025; 85027; 85610; 86850; 86900; 86901; 86923; 87635; 93005; 96361; 96374; 96375; 97162; 97165; 97530; 99285; C1713; C1758; C1769; J0690; J1100; J1650; J2250; J2270; J2370; J2405; J3010; P9016

== ENCOUNTER 2022-07-02 13:01 | Outpatient (REF) | payer MEDICARE, MEDICAID, SELFPAY ==
--- NOTE | ~2022-07-02 | XR_ITS ---
EXAMINATION: XR HIP, LEFT CLINICAL INFORMATION: Pain in left hip. COMPARISON: Intraoperative imaging April 2022. X-ray of the left hip 05/09/2022. TECHNIQUE: 2 views of the left hip. FINDINGS: Postoperative changes with nail and screws in place, unchanged, crossing the previously noted proximal left intertrochanteric fracture. Alignment unchanged. Hardware intact. Ossification most likely related to the prior fracture or postsurgical change rather than a new fracture as this is identified on the intraoperative imaging and preoperative imaging. Spondylosis of the partially visualized lumbosacral spine. Vascular calcification. XR/XR hip LT w PEL1V IMPRESSION: Postop changes related to orthopedic fixation of previously noted proximal left femur fracture, unchanged.
== END 2022-07-02 13:02 | disposition home or self-care (01) ==
LOC: HO.HOSX 13:01
PROVIDERS: Visit Provider Physician Assistant
DX: M25.552 Pain in left hip (principal)
CPT/HCPCS: 73502

== ENCOUNTER → 2022-07-02 14:31 | Outpatient (BNVA) | payer MEDICARE, MEDICAID, SELFPAY | PROVIDERS: PCP Internal Medicine; Visit Provider Physician Assistant | DX: S72.142D Displaced intertrochanteric fracture of left femur, subsequent encounter for closed fracture with routine healing (principal) | CPT/HCPCS: 99212 ==

== ENCOUNTER 2022-08-13 07:41 | Outpatient (REF) | payer MEDICARE, MEDICAID, SELFPAY | END 2022-08-13 07:42 | disposition home or self-care (01) | LOC: HO.HOSX 07:41 | PROVIDERS: Visit Provider Physician Assistant | DX: Z13.89 Encounter for screening for other disorder (principal) ==

== ENCOUNTER 2023-06-10 17:02 | Emergency (ER) | payer MEDICARE, MEDICAID, SELFPAY ==
--- NOTE | ~2023-06-10 | XR_ITS ---
EXAMINATION: XR KNEE, RIGHT CLINICAL INFORMATION: Injury. Pain. COMPARISON: None available. TECHNIQUE: Four views of the right knee. FINDINGS: There is no fracture. No dislocation. No joint effusion. Chondrocalcinosis of medial and lateral meniscus. Small bone spurs of the patella the patellofemoral joint. Ovoid calcifications at the posterior and medial knee are likely intra-articular loose bodies. Largest measuring 1.2 cm. The other measuring 0.6 cm. There are vascular calcifications the soft tissues around the knee. XR/XR knee RT 3V IMPRESSION: 1. No acute abnormality. 2. 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 3. Intra-articular loose bodies.
--- NOTE | ~2023-06-10 | CT_ITS ---
EXAMINATION: CT ABDOMEN AND PELVIS WITH CONTRAST CLINICAL INFORMATION: Abdominal pain. Elevated LFTs. COMPARISON: None available. TECHNIQUE: Multidetector volumetric images were obtained from the superior aspect of the liver through the pubic symphysis following administration 85 mL of Omnipaque 350 intravenous contrast. Sagittal and coronal reformatted images were obtained on the technologist's workstation. Oral contrast: No This CT examination was performed using dose optimization techniques as appropriate, variously including the following: *Automated exposure control *Adjustment of mA and/or kV according to patient size (this includes techniques or standardized protocols for targeted exams where dose is matched to indication/reason for exam; i.e. extremities or head) *Use of iterative reconstruction technique DLP: 357 mGy-cm FINDINGS: LUNG BASES: The visualized lung bases are unremarkable. LIVER, GALLBLADDER, AND BILIARY TREE: Normal size and shape of the liver. Diffuse intrahepatic biliary ductal dilatation. Within the left lobe of the liver there are 2 abnormal lesions which contain fluid and gas, with air-fluid levels. These are in segment 2 near the dome measuring 2 cm more centrally and 2.3 cm more peripherally. Distended gallbladder with layering stones internally. No wall thickening seen. Suspect possible choledocholithiasis, series 3 image 28. The suspected stone measures 0.3 cm. PANCREAS: Unremarkable. SPLEEN: Unremarkable. ADRENAL GLANDS: Unremarkable. KIDNEYS AND URETERS: The kidneys are normal in size, shape, and attenuation. No hydronephrosis, hydroureter, or calculi seen. No perinephric stranding. BLADDER: Significantly distended bladder without wall thickening. GASTROINTESTINAL TRACT: The stomach is unremarkable. Normal caliber small bowel. No obstruction. No colonic wall thickening. There is severe distention of the rectum with stool measuring 10.7 cm transverse. There is fluid surrounding the rectum. Appendix is not definitively seen. ABDOMINAL WALL: No significant hernia is appreciated. LYMPH NODES: Normal. VASCULAR: Normal caliber aorta. Severe atherosclerotic calcification. PELVIC VISCERA: The uterus and adnexa are unremarkable. OSSEOUS STRUCTURES: No acute or suspicious osseous abnormality. Degenerative change throughout the spine. Compression deformities of the T11 and T12 vertebral bodies. Hardware in the left femur. Degenerative changes of both hips. CT/CT abdomen pelvis w IV con IMPRESSION: 1. Diffuse intrahepatic biliary ductal dilatation. There are 2 abnormal lesions in the left lobe of the liver which contain fluid and gas, with air-fluid levels. These are concerning for abscesses. 2. Distended gallbladder with layering stones. Possible choledocholithiasis. 3. Severe distention of the rectum with stool. There is surrounding fluid. This could represent stercoral colitis. Fleischner guidelines were followed.
--- NOTE | ~2023-06-10 | XR_ITS ---
EXAMINATION: XR CHEST CLINICAL INFORMATION: Weakness. COMPARISON: Chest x-ray 05/09/2022 TECHNIQUE: 2 views of the chest were obtained. FINDINGS: Redemonstration of the trachea displaced to the right consistent with an enlarged substernal left lobe of thyroid. This is unchanged since prior chest x-ray. Heart size is normal. Vascular calcifications of aorta. No acute abnormality. No pulmonary vascular congestion. No focal consolidation. No pleural effusion or pneumothorax. Multilevel degenerative spondylosis spine. XR/XR chest 2V IMPRESSION: 1. No acute abnormality of chest.
[2023-06-10 17:21] VITALS: BP 119/52; PULSE 108; RESP 35; TEMP 36.7; O2SAT 97
--- NOTE | 2023-06-10 17:25 | ECG_ITS ---
Test Reason : WEAKNESS Blood Pressure : / mmHG Vent. Rate : 118 BPM Atrial Rate : 118 BPM P-R Int : 176 ms QRS Dur : 098 ms QT Int : 334 ms P-R-T Axes : 041 079 -32 degrees QTc Int : 468 ms Sinus tachycardia Possible Left atrial enlargement ST & T wave abnormality, consider inferior ischemia Abnormal ECG When compared with ECG of 09-MAY-2022 10:40, Premature supraventricular complexes are no longer Present T wave inversion now evident in Inferior leads Nonspecific T wave abnormality now evident in Anterior leads Referred By: Kaela Negrete Electronically Signed By:Brian Saldivar
--- NOTE | 2023-06-10 17:25 | ED_ITS ---
HPI - General Adult General Chief complaint: Weakness Stated complaint: right knee pain fell Time Seen by Provider: 06/10/23 17:24 Source: patient and EMS Mode of arrival: EMS Limitations: no limitations History of Present Illness HPI narrative: Patient is a 77 year old assigned female at with a history of HTN and anemia presenting to the emergency department today with general weakness and right knee pain after a fall. Patient states that she slid off the toilet and hit her right knee. Patient states that she has been very weak and has increased right knee pain and back pain. Patient denies any dizziness, lightheadedness, abdominal pain, nausea, vomiting, fever, chills, blurry vision, double vision, loss of vision, chest pain, difficulty breathing, shortness of breath, night sweats, pain with urination, increased urinary frequency, increased urinary urgency, blood in her urine or stool, syncope or a near syncopal episode, bowel incontinence, bladder incontinence, or any other complaints at this time. Location: back, right and lower extremity Severity: mild Severity scale (1-10): 4 Quality: aching and constant Pain Consistency: constant Relieving factors: none Exacerbating factors: none Associated symptoms: denies other symptoms Treatments prior to arrival: none Related Data Home Medications Medication Instructions Recorded Confirmed acetaminophen 325 mg tablet 650 mg PO Q6H PRN Pain 06/10/23 06/10/23 Previous Rx's Medication Instructions Recorded zolpidem 5 mg tablet (Ambien) 5 mg PO BEDTIME #30 tabs 04/21/23 Allergies Allergy/AdvReac Type Severity Reaction Status Date / Time No Known Allergies Allergy Verified 06/18/22 10:00 [No Known Allergies*] Review of Systems Constitutional: Constitutional: Reports no additional constitutional complaints, Denies chills, Denies fever(s), Denies night sweats and Reports weakness Eyes: Eyes: Reports no additional eye complaints, Denies blurry vision, Denies change in vision, Denies diplopia, Denies eye discharge, Denies loss of vision and Denies eye pain ENT: Denies dizziness Cardiovascular: Cardiovascular: Reports no additional cardiovascular complaints, Denies chest pain, Denies lightheadedness, Denies Loss of Consciousness and Denies dyspnea Respiratory: Respiratory: Reports no additional respiratory complaints and Denies dyspnea Gastrointestinal: Gastrointestinal: Reports no additional gastrointestinal complaints, Denies abdominal pain, Denies melena, Denies hematochezia, Denies change in bowel habits and Denies change in stool character Genitourinary: Genitourinary: Denies hematuria, Denies urinary frequency, Denies dysuria, Denies urinary incontinence, Denies urinary hesitancy and Denies urinary urgency Musculoskeletal: Musculoskeletal: Reports no additional musculoskeletal complaints, Reports back pain, Denies numbness and Denies tingling Comments: right knee pain Neurologic: Denies dizziness, Denies loss of vision, Denies numbness, Denies tingling and Reports weakness Psychiatric: Psychiatric: Reports no additional psychiatric complaints Endocrine: Endocrine: Reports no additional endocrine complaints Hematologic/Lymphatic: Hematologic/Lymphatic: Reports no additional hematologic/lymphatic complaints Allergic/Immunologic: Allergic/Immunologic: Reports no additional allergic/immunologic complaints [facility] Past Medical History Attestation statement: The following information was validated with the patient. Source: old records reviewed and nursing notes reviewed Medical History Closed hip fracture Diabetes mellitus, new onset HTN (hypertension) Surgical History History of elbow surgery History of tonsillectomy Family History Family History Other No family history of diabetes mellitus Social History Social History Household Members: Children Housing: House Do you presently have visiting nurse or other home services: No Alcohol intake: current Alcohol intake frequency: 0-2 drinks per day Alcohol type: hard liquor Patient Tobacco Use Status: Former Tobacco user Tobacco use type: Cigarette Years Smoked: Quit 30 years ago. e-Cigarette/Vaping Use: Never Used Second Hand Smoke Exposure: No Advance Directives: No Advance Directives Information Provided: No service: No Current occupational status: retired Cognitive needs: No Hearing needs: No Vision needs: No Physical Exam ED Vital Signs: Vital Signs - 24 hr 06/10/23 17:21 06/10/23 18:45 06/10/23 19:02 Temperature 98.1 F 97.9 F Pulse Rate 108 H 115 H Respiratory Rate 35 H 18 17 Blood Pressure 119/52 L 113/49 L Pulse Oximetry 97 96 Oxygen Delivery Method Room Air Room Air 06/10/23 20:53 Temperature 97.8 F Pulse Rate 91 Respiratory Rate 19 Blood Pressure 109/50 L Pulse Oximetry Oxygen Delivery Method Room Air BMI result Body Mass Index 19.5 Const General: cooperative, no acute distress, alert and awake Nutritional Appearance: cachectic Orientation/consciousness: patient oriented x3 Limitations: no limitations HENMT Head: Yes normal to inspection and Yes atraumatic Ears: hearing grossly normal bilaterally and external ears normal General nose exam: Normal external nose present, no nasal discharge noted and no epistaxis Face and sinus: Yes normal facial exam, No abrasion and No laceration Mouth: Normal oral and palatal mucosa present, no drooling and no muffled voice Eyes General: appearance normal, both eyes and all related structures Periorbital: periorbital findings normal Eyelids: Yes eyelids normal Conjunctivae: conjunctivae normal Pupils: Equal, round and reactive pupils present EOM: EOMs intact bilaterally Neck Neck: Yes normal visual inspection, Yes full ROM and Yes no lymphadenopathy Chest Chest palpation & inspection: normal inspection of the chest Resp Effort & Inspection: normal respiratory effort and able to speak in complete sentences Auscultation: clear to auscultation bilaterally Cardio Rate: regular rate Rhythm: regular rhythm GI Inspection: Yes normal to inspection Palpation (GI): Soft to palpation, not firm, nontender and no guarding Rectal Exam - Female: External hemorrhoid(s) present and fecal impaction Skin General skin exam: jaundice Neuro General: patient oriented x3 and moves all extremities Cranial nerves: Yes Equal, round and reactive pupils present Cognition (Neuro): normal cognition Motor exam (neuro): 5/5 motor strength present throughout Sensory Exam: Normal double simultaneous stimulation for sensation Coordination: [id number] test normal Extrem General: Yes normal to inspection, Yes full ROM and Yes capillary refill normal Psych Appearance: grossly normal Mental Status: mental status grossly normal Affect: normal affect Attitude: cooperative Thought process: Normal thought process present Thought content: Normal thought content present Insight: Good insight present (Psych) Medications Administered Discontinued Medications Generic Name Dose Route Start Last Admin Trade Name Freq PRN Reason Stop Dose Admin Iohexol 100 ml 06/10/23 19:28 06/10/23 19:28 Iohexol 350 Mg/Ml 100 Ml Infus..Btl IV 06/10/23 19:29 85 ml ONCE ONE Administration Ketorolac Tromethamine 15 mg 06/10/23 17:41 06/10/23 19:39 Ketorolac Tromethamine 15 Mg/Ml Vial IVPUSH 06/10/23 17:42 15 mg ONCE ONE Administration Oxycodone HCl 10 mg 06/10/23 21:28 06/10/23 22:29 Oxycodone Hcl Immed Release 5 Mg Tablet PO 06/10/23 21:29 10 mg ONCE ONE Administration Procedures Rectal Disimpaction Time out performed rectal disimpaction: Yes Indication: fecal impaction Procedural Sedation: No Sedation/Analgesia: none Technique: manual disimpaction with gloved finger Result: significant stool output Patient Tolerated Procedure: well Complications: none Medical Decision Making Medical Decision Making MDM Narrative: Patient is a 77 year old assigned female at with a history of HTN and anemia presenting to the emergency department today with weakness and feeling generally unwell. Patient's physical exam was as noted in the physical exam portion of this chart. Patient's blood work showed a sodium of 128, potassium of 3.0, total bilirubin of 6.9, ALT of 235, and an alk phos 378. The rest of the patient's labs were otherwise grossly normal. Patient's urine showed no acute process. Patient's abdomen/pelvis CT showed diffuse intrahepatic biliary ductal dilatation, 2 abnormal lesions in the left lobe of the liver that contain fluid and gas with air-fluid levels, distended gallbladder with layering stones, and severe distention of the rectum with stool. Rad comments that the lesions in the liver may be abscesses. I spoke with GI who recommended the patient be transferr ed to a tertiary care center due to the lack of ERCP and IR availability [place] [facility] [place]. I disimpacted the patient, per procedure note, without incident. I spoke with [facility] who declined the patient. I spoke with [facility] who also declined. I spoke with [facility] who accepted the patient under Dr. Chino in the [facility] ED. I explained my physical exam findings as well as all test results to the patient. I answered all questions asked by the patient. Patient verbalized agreement and understanding with this treatment plan and transfer. Differential Diagnosis Differential Diagnoses: The differential diagnosis associated with the presentation includes Liver lesions Liver abscess Choledocolithiasis Cholecystitis Liver failure Fecal impaction Urinary retention secondary to fecal impaction Admission/Observation Consideration of admission/observation: Escalation of care including admission/observation considered Patient transferred to [facility]. Consult Healthcare Provider Management of the patient was discussed with: Irrigation Flume Layer (spoke with GI as noted in the MDM portion of this note. ) Lab Data MDM Lab Attestation statement: I reviewed the patient's lab results. My interpretation of these results are in the MDM portion of this note. 06/10/23 17:46 06/10/23 17:46 Labs: Lab Results 06/10/23 06/10/23 06/10/23 Range/Units 17:46 17:46 17:46 WBC 10.2 (4.8-10.8) X10*3/uL RBC 4.34 D (4.20-5.50) X10*6/uL Hgb 12.0 D (12.0-16.0) g/dl Hct 34.9 L D (37.0-47.0) % MCV 80.4 (80.0-98.0) fL MCH 27.6 (27.0-33.0) pg MCHC 34.4 (31.0-35.0) g/dl RDW 13.2 (11.0-16.0) % Plt Count 115 L D (160-400) X10*3/uL MPV 10.9 (9.4-12.3) fL Immature Gran % (Auto) 3.0 H (0.0-0.4) % Neut % (Auto) 84.4 H (45-73) % Lymph % (Auto) 3.4 L (20-40) % [place] % (Auto) 6.6 (2-11) % Eos % (Auto) 2.0 (0-4) % Baso % (Auto) 0.6 (0-2) % Lymph # (Auto) 0.4 L (1.2-4.9) X10*3/uL [place] # (Auto) 0.7 (0.1-1.2) X10*3/uL Eos # (Auto) 0.2 (0.0-0.4) X10*3/uL Baso # (Auto) 0.1 (0.0-0.2) X10*3/uL Abs Immat Gran (auto) 0.31 H (0.00-0.03) X10*3/uL Absolute Neuts (auto) 8.6 H (2.0-8.3) x10*3/uL Absolute Nucleated RBC 0.000 (0.0-0.012) X10*3/uL Nucleated RBC % (auto) 0.0 (0.0-0.2) /100WBC Sodium 128 L (135-145) mmol/L Potassium 3.0 L (3.3-5.1) mmol/L Chloride 94 L (96-108) mmol/L Carbon Dioxide 21 L (22-29) mmol/L Anion Gap 16 (12-20) BUN 55 H (9-16) mg/dL Creatinine 0.87 (0.5-1.4) mg/dL Estim Creat Clear Calc TNP Estimated GFR > 60 Random Glucose 271 H (60-115) mg/dL Lactic Acid (0.5-2.0) mmol/L Calcium 10.0 D (8.4-10.2) mg/dL Magnesium 1.9 (1.6-2.6) mg/dL Total Bilirubin 6.9 H (0.0-1.0) mg/dL AST 24 (5-31) U/L ALT 235 H (0-31) U/L Alkaline Phosphatase 378 H (39-117) U/L Troponin I High Sens 4.0 (<3.5-17.0) ng/L Total Protein 6.3 L (6.5-8.0) g/dL Albumin 3.0 L (3.5-5.0) g/dL Urine Color Urine Appearance Urine pH (5.0-9.0) Ur Specific [place] (1.005-1.025) Urine Protein (Neg-Trace) mg/dL Urine Glucose (UA) (Negative) mg/dL Urine Ketones (Negative) mg/dL Urine Blood (Negative) Urine Nitrite (Negative) Ur Leukocyte Esterase (Negative) Urine RBC (0-2) /HPF Urine WBC (0-5) /HPF Ur Squamous Epith Cells (0-2) /HPF Urine Bacteria (None Seen) Hyaline Casts (0-2) /LPF Granular Casts Urine Yeast COVID-19 (DAVID) (Negative) COVID-19 Clin Com 06/10/23 06/10/23 06/10/23 Range/Units 17:46 17:46 20:44 WBC (4.8-10.8) X10*3/uL RBC (4.20-5.50) X10*6/uL Hgb (12.0-16.0) g/dl Hct (37.0-47.0) % MCV (80.0-98.0) fL MCH (27.0-33.0) pg MCHC (31.0-35.0) g/dl RDW (11.0-16.0) % Plt Count (160-400) X10*3/uL MPV (9.4-12.3) fL Immature Gran % (Auto) (0.0-0.4) % Neut % (Auto) (45-73) % Lymph % (Auto) (20-40) % [place] % (Auto) (2-11) % Eos % (Auto) (0-4) % Baso % (Auto) (0-2) % Lymph # (Auto) (1.2-4.9) X10*3/uL [place] # (Auto) (0.1-1.2) X10*3/uL Eos # (Auto) (0.0-0.4) X10*3/uL Baso # (Auto) (0.0-0.2) X10*3/uL Abs Immat Gran (auto) (0.00-0.03) X10*3/uL Absolute Neuts (auto) (2.0-8.3) x10*3/uL Absolute Nucleated RBC (0.0-0.012) X10*3/uL Nucleated RBC % (auto) (0.0-0.2) /100WBC Sodium (135-145) mmol/L Potassium (3.3-5.1) mmol/L Chloride (96-108) mmol/L Carbon Dioxide (22-29) mmol/L Anion Gap (12-20) BUN (9-16) mg/dL Creatinine (0.5-1.4) mg/dL Estim Creat Clear Calc Estimated GFR Random Glucose (60-115) mg/dL Lactic Acid 1.5 (0.5-2.0) mmol/L Calcium (8.4-10.2) mg/dL Magnesium (1.6-2.6) mg/dL Total Bilirubin (0.0-1.0) mg/dL AST (5-31) U/L ALT (0-31) U/L Alkaline Phosphatase (39-117) U/L Troponin I High Sens (<3.5-17.0) ng/L Total Protein (6.5-8.0) g/dL Albumin (3.5-5.0) g/dL Urine Color Dark Yellow Urine Appearance Cloudy Urine pH 5.5 (5.0-9.0) Ur Specific [place] 1.020 (1.005-1.025) Urine Protein 100 (2+) H (Neg-Trace) mg/dL Urine Glucose (UA) 250 H (Negative) mg/dL Urine Ketones 15 (Negative) mg/dL Urine Blood Negative (Negative) Urine Nitrite Negative (Negative) Ur Leukocyte Esterase Trace H (Negative) Urine RBC 3-5 H (0-2) /HPF Urine WBC 0-5 (0-5) /HPF Ur Squamous Epith Cells 3-5 (0-2) /HPF Urine Bacteria None Seen (None Seen) Hyaline Casts 0-2 (0-2) /LPF Granular Casts Present Urine Yeast Present COVID-19 (DAVID) Negative (Negative) COVID-19 Clin Com See Note Independent Interpretation I performed an independent interpretation of an: EKG, Plain X-Ray and CT Scan Interpretation: Vent. Rate: 118 BPM ? ? Atrial Rate: 118 BPM P-R Int: 176 ms? QRS Dur: 098 ms QT Int: 334 ms ? ? ? P-R-T Axes: 041 079 -32 degrees QTc Int: 468 ms ? Sinus tachycardia Possible Left atrial enlargement ST & T wave abnormality, consider inferior ischemia Abnormal ECG When compared with ECG of 09-MAY-2022 10:40, Premature supraventricular complexes are no longer Present T wave inversion now evident in Inferior leads Nonspecific T wave abnormality now evident in Anterior leads DD/ 1736 EXAMINATION: CT ABDOMEN AND PELVIS WITH CONTRAST? CLINICAL INFORMATION: Abdominal pain. Elevated LFTs.? COMPARISON: None available. TECHNIQUE: Multidetector volumetric images were obtained from the superior aspect of the liver through the pubic symphysis following administration 85 mL of Omnipaque 350 intravenous contrast. Sagittal and coronal reformatted images were obtained on the technologist's workstation.? Oral contrast: No This CT examination was performed using dose optimization techniques as appropriate, variously including the following: *Automated exposure control *Adjustment of mA and/or kV according to patient size (this includes techniques or standardized protocols for targeted exams where dose is matched to indication/reason for exam; i.e. extremities or head) *Use of iterative reconstruction technique DLP: 357 mGy-cm FINDINGS: LUNG BASES: The visualized lung bases are unremarkable.? LIVER, GALLBLADDER, AND BILIARY TREE: Normal size and shape of the liver. Diffuse intrahepatic biliary ductal dilatation. Within the left lobe of the liver there are 2 abnormal lesions which contain fluid and gas, with air-fluid levels. These are in segment 2 near the dome measuring 2 cm more centrally and 2.3 cm more peripherally. Distended gallbladder with layering stones internally. No wall thickening seen. Suspect possible choledocholithiasis, series 3 image 28. The suspected stone measures 0.3 cm.? PANCREAS: Unremarkable.? SPLEEN: Unremarkable.? ADRENAL GLANDS: Unremarkable.? KIDNEYS AND URETERS: The kidneys are normal in size, shape, and attenuation. No hydronephrosis, hydroureter, or calculi seen. No perinephric stranding. ? BLADDER: Significantly distended bladder without wall thickening.? GASTROINTESTINAL TRACT: The stomach is unremarkable. Normal caliber small bowel. No obstruction. No colonic wall thickening. There is severe distention of the rectum with stool measuring 10.7 cm transverse. There is fluid surrounding the rectum. Appendix is not definitively seen. ABDOMINAL WALL: No significant hernia is appreciated.? LYMPH NODES: Normal. VASCULAR: Normal caliber aorta. Severe atherosclerotic calcification. PELVIC VISCERA: The uterus and adnexa are unremarkable.? OSSEOUS STRUCTURES: No acute or suspicious osseous abnormality. Degenerative change throughout the spine. Compression deformities of the T11 and T12 vertebral bodies. Hardware in the left femur. Degenerative changes of both hips.? CT/CT abdomen pelvis w IV con IMPRESSION: 1.? Diffuse intrahepatic biliary ductal dilatation. There are 2 abnormal lesions in the left lobe of the liver which contain fluid and gas, with air-fluid levels. These are concerning for abscesses. 2.? Distended gallbladder with layering stones. Possible choledocholithiasis. 3.? Severe distention of the rectum with stool. There is surrounding fluid. This could represent stercoral colitis. ? Fleischner guidelines were followed. Dictated By: Godfrey Arambula MD Signed By: Electronically signed by Godfrey Arambula MD 06/10/232002 ---- EXAMINATION: XR KNEE, RIGHT? CLINICAL INFORMATION: Injury. Pain.? COMPARISON: None available.? TECHNIQUE: Four views of the right knee. FINDINGS: There is no fracture. No dislocation. No joint effusion. Chondrocalcinosis of medial and lateral meniscus. Small bone spurs of the patella the patellofemoral joint. Ovoid calcifications at the posterior and medial knee are likely intra-articular loose bodies. Largest measuring 1.2 cm. The other measuring 0.6 cm. There are vascular calcifications the soft tissues around the knee. XR/XR knee RT 3V IMPRESSION: 1.? No acute abnormality. 2.? 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 3.? Intra-articular loose bodies. Dictated By: Anoop Ramos MD Signed By: Electronically signed by Anoop Ramos MD 06/10/23 1823 EXAMINATION: XR CHEST CLINICAL INFORMATION: Weakness. COMPARISON: Chest x-ray 05/09/2022 TECHNIQUE: 2 views of the chest were obtained. FINDINGS: Redemonstration of the trachea displaced to the right consistent with an enlarged substernal left lobe of thyroid. This is unchanged since prior chest x-ray. Heart size is normal. Vascular calcifications of aorta. No acute abnormality. No pulmonary vascular congestion. No focal consolidation. No pleural effusion or pneumothorax. Multilevel degenerative spondylosis spine. XR/XR chest 2V IMPRESSION: 1.? No acute abnormality of chest. Dictated By: Anoop Ramos MD Signed By: Electronically signed by Anoop Ramos MD 06/10/23 5260 Radiology Impression Discussion of test interpretation with radiology: I have reviewed the radiologist's reading. Independent Historian Clinical information obtained from an independent historian. History obtained from or confirmed by: EMS (EMS provided additional history and confirmed the history provided by the patient.) Chronic Conditions Patient?s care impacted by: Hypertension Critical Care Time Critical Care Time Critical Care Time: Yes Total Critical Care Time: 55 Attestation: I spent 55 minutes of Critical Care Time with this patient. This does not include time spent on separately reported billable procedures. Discharge Plan Discharge Clinical Impression: Choledocholithiasis, Abscess of liver, Fecal impaction Patient Disposition: [facility] Transfer Details: [facility] Prescriptions: No Action zolpidem [Ambien] 5 mg tablet 5 mg PO BEDTIME Qty: 30 5RF acetaminophen 325 mg Tablet 650 mg PO Q6H PRN (Reason: Pain)
[2023-06-10 17:53] LABS: MANUAL DIFF FLAG NO
[2023-06-10 17:57] LABS: Basophils Absolute Auto 0.1 X10*3/uL (0.0-0.2); Basophils Percent Auto 0.6 % (0-2); Eosinophils Absolute Auto 0.2 X10*3/uL (0.0-0.4); Hematocrit 34.9 % (37.0-47.0); Imm Gran Abs Auto 0.31 X10*3/uL (0.00-0.03); Lymphocytes Absolute Auto 0.4 X10*3/uL (1.2-4.9); Lymphocytes Percent Auto 3.4 % (20-40); Mean Corpuscular HGB Conc 34.4 g/dl (31.0-35.0); Mean Corpuscular Hemoglobin 27.6 pg (27.0-33.0); Mean Corpuscular Volume 80.4 fL (80.0-98.0); Mean Platelet Volume 10.9 fL (9.4-12.3); Monocytes Absolute Auto 0.7 X10*3/uL (0.1-1.2); Monocytes Percent Auto 6.6 % (2-11); Neutrophils Absolute Auto 8.6 x10*3/uL (2.0-8.3); Neutrophils Percent Auto 84.4 % (45-73); Platelet Count 115 X10*3/uL (160-400); Red Blood Count 4.34 X10*6/uL (4.20-5.50); Red Cell Distribution Width 13.2 % (11.0-16.0); White Blood Count 10.2 X10*3/uL (4.8-10.8)
[2023-06-10 18:09] LABS: Lactic Acid 1.5 mmol/L (0.5-2.0)
[2023-06-10 18:13] LABS: Alanine Aminotransferase 235 U/L (0-31); Alkaline Phosphatase 378 U/L (39-117); Anion Gap 16 (12-20); Aspartate Amino Transferase 24 U/L (5-31); Bilirubin Total 6.9 mg/dL (0.0-1.0); Blood Urea Nitrogen 55 mg/dL (9-16); Carbon Dioxide 21 mmol/L (22-29); Chloride 94 mmol/L (96-108); Estimated Glomerular Filt Rate > 60; Glucose Random 271 mg/dL (60-115); Magnesium 1.9 mg/dL (1.6-2.6); Sodium 128 mmol/L (135-145); Total Protein 6.3 g/dL (6.5-8.0)
[2023-06-10 18:26] LABS: COVID-19 Test Negative (Negative); IDNOW Serial# 9DB6401D
[2023-06-10 18:45] VITALS: BP 113/49; PULSE 115; RESP 18; TEMP 36.6; O2SAT 96; BMI 19.5
[2023-06-10 19:02] VITALS: RESP 17
[2023-06-10] MEDS: iohexoL 350 MG/ML 100 ML INFUS..BTL IV (19:28)
[2023-06-10] MEDS: Ketorolac Tromethamine 15 MG/ML VIAL IVPUSH (19:39)
--- NOTE | 2023-06-10 20:38 | PHA.MEDREC ---
Pharmacy Consult ? Medication Reconciliation Pharmacy has completed the medication reconciliation. Pt claims to only take ambien and tylenol. When asked about the oxycodone prescribed recently she says that was a long time ago and she no longer takes it.
--- NOTE | 2023-06-10 20:46 | MHC.EDTECH ---
[facility]'s transfer line called @2035 spoke with Shameka they are closed due to capacity, Kaela CORNEJO made aware
--- NOTE | 2023-06-10 20:47 | MHC.EDTECH ---
[facility] Transfer line called @ 2039 spoke with Willa they are closed due to capacity, Kaela CORNEJO made aware
--- NOTE | 2023-06-10 20:49 | MHC.EDTECH ---
[facility] transfer line called @ 2042 spoke with Jewell,gave patient info then asked to speak with Kaela CORNEJO she took call right away, Then the [employer] faxed over demographics.
[2023-06-10 20:53] VITALS: BP 109/50; PULSE 91; RESP 19; TEMP 36.6
[2023-06-10 20:56] LABS: Appearance Urine Cloudy; Color Urine Dark Yellow; Glucose Urine UA 250 mg/dL (Negative); Leukocyte Esterase Urine Trace (Negative); Nitrite Urine Negative (Negative); PH 5.5 (5.0-9.0); UMIC TRIGGER UACC YES; Urine Blood Negative (Negative); Urine Ketones 15 mg/dL (Negative); Urine Protein 100 (2+) mg/dL (Neg-Trace)
--- NOTE | 2023-06-10 20:57 | MHC.EDTECH ---
1000 CC URINE EMPTIED FROM [facility]
[2023-06-10 21:04] LABS: Bacteria Urine None Seen (None Seen); Granular Casts Urine Present; Hyaline Casts Urine 0-2 /LPF (0-2); WBC Urine 0-5 /HPF (0-5)
--- NOTE | 2023-06-10 21:39 | MHC.EDTECH ---
[facility] @ 1400 spoke to Shameka diez to olya.
--- NOTE | 2023-06-10 21:46 | MHC.EDTECH ---
[facility] - Called @ 2039 spoke to Willa - Closed due to cap
--- NOTE | 2023-06-10 21:47 | MHC.EDTECH ---
[facility] called @ 2042 spoke to Jewell asked to speak to provider . Patient was accepted by Dr. Chino
[2023-06-10] MEDS: oxyCODONE HCl Immed Release 5 MG TABLET 10 MG PO (22:29)
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
--- NOTE | 2023-06-11 20:31 | PC.NURSE ---
Potassium and ABX not given due to BLS crew arrival and due to patient's declining condition and immediate need for transfer
== END 2023-06-12 03:14 | disposition short-term general hospital (02) ==
PROVIDERS: Physician Assistant Medical; Emergency Provider Emergency Medicine
DX: K80.70 Calculus of gallbladder and bile duct without cholecystitis without obstruction (principal); K75.0 Abscess of liver; K56.41 Fecal impaction; Z20.822 Contact with and (suspected) exposure to COVID-19
CPT/HCPCS: 36415; 71046; 73562; 74177; 80053; 81001; 83605; 83735; 84484; 85025; 87040; 87076; 87077; 87185; 87186; 87205; 87635; 93005; 96374; 99284; 99285; J1885; Q9967

== ENCOUNTER → 2023-06-10 17:25 | Outpatient (BNV) | payer MEDICARE, MEDICAID, SELFPAY | PROVIDERS: Emergency Provider Emergency Medicine; Visit Provider Internal Medicine Cardiovascular Disease | DX: R00.0 Tachycardia, unspecified (principal); R94.31 Abnormal electrocardiogram [ECG] [EKG] | CPT/HCPCS: 93010 ==